=== PATIENT | female | born 1950 | race Caucasian/White ===

== ENCOUNTER 2016-10-31 08:51 | Emergency (ER) | payer MEDICARE, MEDICAID ==
[~2016-10-31] VITALS: Ht 157.5 cm; Wt 66.9 kg
[~2016-10-31 08:51] MED LIST: /HYDR10T PO; /WARF3TA PO; ASPI81TA85 PO; ATOR1TAB19 PO; CARV12.5 PO; FENO48TA2 PO; FLAG500T PO; HYDR50IN3 IM; HYDRPOW28 XX; LANS30CA PO; LISI5TAB PO; MONT10TA2 PO; MULTTAB6 PO; SPIR25TA2 PO; WARF4TAB28 PO
[2016-10-31] MEDS ORDERED: CLAR10CA3 PO (09:27)
[2016-10-31] MEDS ORDERED: MECL-86 PO (09:27)
[2016-10-31] MEDS ORDERED: NS 1,000 ML IV SCH (09:39)
[2016-10-31] MEDS ORDERED: NS 500 ML IV ONE ×2 (09:45→11:00)
[2016-10-31 10:06] LABS: BASO % 0.4 % (0.0-1.0); EOS # 0.2 K/mm3 (0.0-0.50); EOS % 2.7 % (0.0-3.0); LARGE UNSTAINED CELL # 0.1 K/mm3 (0.0-0.4); LARGE UNSTAINED CELL % 1.7 % (0.0-4.0); LYMPH # 1.6 K/mm3 (1.5-4.5); LYMPH % 21.5 % (24.0-44.0); MEAN CORPUSCULAR HEMOGLOBIN 28.5 pg (27.0-33.0); MEAN CORPUSCULAR HGB CONC 31.4 g/dl (32.0-36.5); MEAN CORPUSCULAR VOLUME 90.9 fl (80.0-96.0); MONO # 0.6 K/mm3 (0.0-0.8); MONO % 9.1 % (0.0-5.0); NEUTROPHILS # 4.5 K/mm3 (1.8-7.7); NEUTROPHILS % 64.6 % (36.0-66.0); PLATELET COUNT, AUTOMATED 155 k/mm3 (150-450); RED CELL DISTRIBUTION WIDTH 20.3 % (11.5-14.5); WHITE BLOOD COUNT 6.9 K/mm3 (4.0-10.0)
[2016-10-31 10:27] LABS: ALBUMIN 3.7 GM/DL (3.2-5.2); ALBUMIN/GLOBULIN RATIO 1.19 (1.00-1.93); BILIRUBIN,DIRECT 0.8 MG/DL (0.0-0.2); BILIRUBIN,TOTAL 2.2 MG/DL (0.2-1.0); CALCIUM LEVEL 8.6 MG/DL (8.8-10.2); CREATININE FOR GFR 1.65 MG/DL (0.55-1.02); GLOMERULAR FILTRATION RATE 33.2 (>45); POTASSIUM SERUM 4.9 MEQ/L (3.5-5.1); TOTAL PROTEIN 6.8 GM/DL (6.4-8.2)
[2016-10-31 12:20] VITALS: BP 106/55
--- NOTE | 2016-11-02 07:15 | ECGEPIP ---
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
== END 2016-10-31 12:42 | disposition home or self-care (01) ==
LOC: M ED 10:17
DX: R42 Dizziness and giddiness (principal); H92.09 Otalgia, unspecified ear; I50.9 Heart failure, unspecified; I11.0 Hypertensive heart disease with heart failure; Z95.1 Presence of aortocoronary bypass graft; Z95.0 Presence of cardiac pacemaker; Z79.82 Long term (current) use of aspirin; Z79.899 Other long term (current) drug therapy; Z79.01 Long term (current) use of anticoagulants; Z88.8 Allergy status to other drugs, medicaments and biological substances

== ENCOUNTER → 2016-12-20 | Outpatient (REF) | payer MEDICARE, MEDICAID ==
[~2016-12-20] MED LIST changes: +CLAR10CA3 PO; +FURO20TA2 PO; +MAGN64TASA PO; +MECL-86 PO
[2016-12-20 19:09] LABS: RETIC HEMOGLOBIN CONTENT CHr 27.4 PG (24-36); RETICULOCYTE ABSOLUTE ADVIA212 228 x10(9)/L (17-77)
[2016-12-20 19:24] LABS: REASON FOR REVIEW COMPREHENSIVE REVIEW
[2016-12-20 20:32] LABS: FERRITIN 27 NG/ML (8-252); PERCENT SATURATION 9.5 % (13.2-45.0); TOTAL IRON BINDING CAPACITY 524 UG/DL (250-450); TOTAL PROTEIN 6.8 GM/DL (6.4-8.2)
[2016-12-21 12:02] LABS: ALBUMIN 3.92 GM/DL (3.29-5.55); ALBUMIN % 57.7 % (55.8-66.1); GAMMA GLOBULIN % 13.1 % (11.1-18.8)
== END ==
LOC: M LAB REF 14:10
PROVIDERS: ATTEND Internal Medicine Medical Oncology
DX: R79.9 Abnormal finding of blood chemistry, unspecified (principal)

== ENCOUNTER → 2017-01-07 | Outpatient (REF) | payer MEDICARE, MEDICAID | LOC: M LAB REF 12:35 | PROVIDERS: ATTEND Internal Medicine Medical Oncology | DX: D50.9 Iron deficiency anemia, unspecified (principal) ==

== ENCOUNTER 2017-01-16 14:01 | Emergency (ER) | payer MEDICARE, MEDICAID ==
[~2017-01-16] VITALS: Ht 152.4 cm; Wt 139.0 kg
[~2017-01-16 14:01] MED LIST changes: -FURO20TA2 PO; -MAGN64TASA PO
[2017-01-16] MEDS ORDERED: MAGN64TASA PO (14:14)
[2017-01-16] MEDS ORDERED: FURO20TA2 PO (14:14)
[2017-01-16 14:56] LABS: INR 4.09
[2017-01-16 14:58] LABS: ADD MANUAL DIFFER YES; MEAN CORPUSCULAR HEMOGLOBIN 22.4 pg (27.0-33.0); PLATELET COUNT, AUTOMATED 219 k/mm3 (150-450); RED CELL DISTRIBUTION WIDTH 31.7 % (11.5-14.5); WHITE BLOOD COUNT 7.2 K/mm3 (4.0-10.0)
[2017-01-16 15:13] LABS: ALBUMIN 3.5 GM/DL (3.2-5.2); ALBUMIN/GLOBULIN RATIO 1.06 (1.00-1.93); BILIRUBIN,DIRECT 2.9 MG/DL (0.0-0.2); BILIRUBIN,TOTAL 4.6 MG/DL (0.2-1.0); CALCIUM LEVEL 8.8 MG/DL (8.8-10.2); CREATININE FOR GFR 1.41 MG/DL (0.55-1.02); FREE T4 1.48 NG/DL (0.76-1.46); GLOMERULAR FILTRATION RATE 39.8 (>45); POTASSIUM SERUM 4.3 MEQ/L (3.5-5.1); TOTAL PROTEIN 6.8 GM/DL (6.4-8.2)
--- NOTE | 2017-01-16 15:18 | REP ---
Clinical: Shortness of breath. Syncope. Technique: PA and lateral. Comparison: 11/10/2006. Findings: Cardiomegaly and evidence for prior sternotomy, CABG, valve replacement, and pacemaker. Lung ventura demonstrate chronic changes similar to prior examination. Subtle superimposed left lower lobe atelectasis and small pleural effusion cannot be excluded. No pneumothorax. Skeletal structures intact. Impression: Chronic stable changes. Cannot exclude superimposed left basilar atelectasis and small pleural effusion. Signed by Ken Driscoll MD 01/16/2017 03:09 P
[2017-01-16 15:40] LABS: EOSINOPHILS 4 % (0-5); NUCLEATED RED BLOOD CELL 1 % (0-0)
[2017-01-16 15:47] LABS: ANISOCYTOSIS 3+; HYPOCHROMASIA 2+; MICROCYTOSIS 1+; POLYCHROMASIA 1+; SCHISTOCYTES 3+
[2017-01-16 15:48] LABS: POIKILOCYTOSIS 2+
[2017-01-16 17:52] VITALS: BP 105/55
--- NOTE | 2017-01-17 07:59 | ECGEPIP ---
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
== END 2017-01-16 17:53 | disposition short-term general hospital (02) ==
LOC: M ED 14:01
DX: I35.0 Nonrheumatic aortic (valve) stenosis (principal); I50.9 Heart failure, unspecified; E80.6 Other disorders of bilirubin metabolism; R74.8 Abnormal levels of other serum enzymes; I11.9 Hypertensive heart disease without heart failure; E78.9 Disorder of lipoprotein metabolism, unspecified; N18.9 Chronic kidney disease, unspecified; F41.9 Anxiety disorder, unspecified; K21.9 Gastro-esophageal reflux disease without esophagitis; Z79.82 Long term (current) use of aspirin; Z79.01 Long term (current) use of anticoagulants; Z79.899 Other long term (current) drug therapy; Z88.8 Allergy status to other drugs, medicaments and biological substances

== ENCOUNTER → 2017-02-09 | Outpatient (REF) | payer MEDICARE, MEDICAID ==
[~2017-02-09] MED LIST changes: +FURO20TA2 PO; +MAGN64TASA PO
== END ==
LOC: M LAB REF 13:02
PROVIDERS: ATTEND Nurse Practitioner
DX: I48.91 Unspecified atrial fibrillation (principal); I06.0 Rheumatic aortic stenosis

== ENCOUNTER 2017-04-11 10:39 | Emergency (ER) | payer MEDICARE, MEDICAID ==
[~2017-04-11] VITALS: Ht 157.5 cm; Wt 54.5 kg
[2017-04-11] MEDS ORDERED: FOLI1TAB4 (10:53)
[2017-04-11] MEDS ORDERED: FURO40TA2 (10:53)
[2017-04-11] MEDS ORDERED: TAB-TAB (10:53)
[2017-04-11] MEDS ORDERED: POTA1TAB23 (10:53)
[2017-04-11] MEDS ORDERED: ATOR1TAB21 (10:53)
[2017-04-11] MEDS ORDERED: CARV3.12 (10:53)
[2017-04-11] MEDS ORDERED: NS 500 ML IV ONE (13:15)
[2017-04-11 13:49] LABS: BASO % 0.5 % (0.0-1.0); EOS # 0.1 10^3/uL (0.0-0.50); EOS % 1.6 % (0.0-3.0); IMMATURE GRANULOCYTE % 0.3 % (0-0); LYMPH # 1.8 10^3/uL (1.5-4.5); LYMPH % 23.1 % (24.0-44.0); MEAN CORPUSCULAR HEMOGLOBIN 26.9 pg (27.0-33.0); MEAN CORPUSCULAR HGB CONC 33.7 g/dl (32.0-36.5); MEAN CORPUSCULAR VOLUME 79.9 fl (80.0-96.0); MONO # 0.8 10^3/uL (0.0-0.8); MONO % 9.9 % (0.0-5.0); NEUTROPHILS # 5.1 10^3/uL (1.8-7.7); NEUTROPHILS % 64.6 % (36.0-66.0); PLATELET COUNT, AUTOMATED 247 10^3/uL (150-450); RED CELL DISTRIBUTION WIDTH 14.1 % (11.5-14.5)
[2017-04-11 14:05] LABS: ALBUMIN 4.1 GM/DL (3.2-5.2); ALBUMIN/GLOBULIN RATIO 1.08 (1.00-1.93); BILIRUBIN,DIRECT 0.5 MG/DL (0.0-0.2); BILIRUBIN,TOTAL 0.9 MG/DL (0.2-1.0); CALCIUM LEVEL 8.7 MG/DL (8.8-10.2); CREATININE FOR GFR 1.09 MG/DL (0.55-1.02); GLOMERULAR FILTRATION RATE 53.5 (>45); POTASSIUM SERUM 4.5 MEQ/L (3.5-5.1); TOTAL PROTEIN 7.9 GM/DL (6.4-8.2)
[2017-04-11] MEDS ORDERED: BENT10CA PO (15:37)
[2017-04-11 15:42] VITALS: BP 107/72
== END 2017-04-11 15:50 | disposition home or self-care (01) ==
LOC: M ED 10:39
DX: R19.7 Diarrhea, unspecified (principal); Z87.891 Personal history of nicotine dependence; Z79.82 Long term (current) use of aspirin; Z79.01 Long term (current) use of anticoagulants; Z79.899 Other long term (current) drug therapy; Z88.8 Allergy status to other drugs, medicaments and biological substances

== ENCOUNTER 2018-10-20 06:52 | Emergency (ER) | payer MEDICARE, MEDICAID ==
[~2018-10-20] VITALS: Ht 157.5 cm; Wt 63.2 kg
[~2018-10-20 06:52] MED LIST changes: -/WARF3TA PO; +ATOR1TAB21; +BENT10CA PO; +CARV3.12; +COUM1TAB19 PO; +FOLI1TAB11; +FURO40TA2; +POTA1TAB23; +TAB-TAB
[2018-10-20] MEDS ORDERED: ONDANSETRON 4MG/2ML VIAL (J2405) IV ONE (07:15)
[2018-10-20] MEDS ORDERED: NS 1,000 ML IV ONE (07:15)
[2018-10-20] MEDS ORDERED: NS 500 ML IV ONE (07:45)
[2018-10-20 07:47] LABS: BASO # 0.1 10^3/uL (0.0-0.2); BASO % 0.4 % (0.0-1.0); EOS # 0.2 10^3/uL (0.0-0.50); HEMATOCRIT 41.6 % (36.0-47.0); HEMOGLOBIN 14.4 g/dl (12.0-15.5); LYMPH # 2.7 10^3/uL (1.5-4.5); LYMPH % 11.8 % (24.0-44.0); MEAN CORPUSCULAR HEMOGLOBIN 30.6 pg (27.0-33.0); MEAN CORPUSCULAR HGB CONC 34.6 g/dl (32.0-36.5); MEAN CORPUSCULAR VOLUME 88.3 fl (80.0-96.0); MONO # 1.2 10^3/uL (0.0-0.8); MONO % 5.4 % (0.0-5.0); NEUTROPHILS # 18.2 10^3/uL (1.8-7.7); NEUTROPHILS % 80.8 % (36.0-66.0); PLATELET COUNT, AUTOMATED 209 10^3/uL (150-450); RED BLOOD COUNT 4.71 10^6/uL (4.00-5.40); WHITE BLOOD COUNT 22.5 10^3/uL (4.0-10.0)
[2018-10-20 07:48] LABS: INR 2.92; PROTHROMBIN TIME 30.4 SECONDS (11.8-14.0)
[2018-10-20] MEDS ORDERED: MORPHINE 2 MG/ML 1ML SYRINGE (J2270) IV ONE ×2 (08:00→11:30)
[2018-10-20] MEDS ORDERED: ISOVUE-370 76% 100ML VIAL (Q9967) As Ordered ONE (08:18)
[2018-10-20 09:10] LABS: ALBUMIN 4.3 GM/DL (3.2-5.2); BILIRUBIN,DIRECT 0.7 MG/DL (0.0-0.2); BILIRUBIN,TOTAL 1.4 MG/DL (0.2-1.0); TOTAL PROTEIN 7.6 GM/DL (6.4-8.2)
--- NOTE | 2018-10-20 10:22 | REP ---
CT ABDOMEN AND PELVIS WITH IV CONTRAST: TECHNIQUE: Axial contrast enhanced images from the lung bases to the pubic symphysis using 100 mL Isovue 370 intravenous contrast material with multiplanar reformations. Visualized lung bases demonstrate fibro atelectatic changes within the lateral segment of the right middle lobe on the most superior image there is a 9 mm nodular opacity. There is significant cardiomegaly with severe right atrial and left atrial enlargement. The liver demonstrates diffuse fatty infiltration. The gallbladder is moderately distended and contains multiple subcentimeter stones. The spleen and adrenals were unremarkable. The pancreas demonstrates diffuse inflammatory change in the peripancreatic fat compatible with pancreatitis. There are several increased density in the region of the distal end of the common bile ducts probably representing choledocholithiasis. Common bile duct is not significantly dilated centrally 7 mm in maximum diameter. Each kidney demonstrates a couple of tiny subcentimeter cysts without hydronephrosis. There is no abdominal aortic aneurysm. There is no adenopathy. There is no free air or free fluid. No bowel wall thickening is seen. I see no pelvic mass. The urinary bladder is not well distended and not well evaluated. There is a small right inguinal hernia containing fat. IMPRESSION: Partially imaged in the right middle lobe is a 9 mm nodular density. Follow up chest recommended. There is significant cardiomegaly with significant right atrial and left atrial enlargement. There are findings of pancreatitis. There are multiple subcentimeter gallstones in the gallbladder. There is increased density in the region of the distal end of the common bile duct suspicious for choledocholithiasis. No free air or free fluid. Electronically Signed by Jacob Beatty MD 10/20/2018 10:37 A
[2018-10-20] MEDS ORDERED: PIPERACILLIN/TAZOBACTAM SOD 3.375 GM in D5W MINI-BAG PLUS 50 ML IV ONE (11:30)
[2018-10-20 14:15] VITALS: BP 88/44
== END 2018-10-20 14:19 | disposition short-term general hospital (02) ==
LOC: M ED 06:52
DX: K80.70 Calculus of gallbladder and bile duct without cholecystitis without obstruction (principal); K85.90 Acute pancreatitis without necrosis or infection, unspecified; K83.09 Other cholangitis; R91.1 Solitary pulmonary nodule; R11.10 Vomiting, unspecified; R19.7 Diarrhea, unspecified; I50.9 Heart failure, unspecified; I11.0 Hypertensive heart disease with heart failure; I48.91 Unspecified atrial fibrillation; E78.5 Hyperlipidemia, unspecified; K21.9 Gastro-esophageal reflux disease without esophagitis; Z87.440 Personal history of urinary (tract) infections; Z95.1 Presence of aortocoronary bypass graft; Z95.2 Presence of prosthetic heart valve; Z95.810 Presence of automatic (implantable) cardiac defibrillator; Z88.8 Allergy status to other drugs, medicaments and biological substances; Z79.899 Other long term (current) drug therapy; Z79.82 Long term (current) use of aspirin; Z79.01 Long term (current) use of anticoagulants
CPT/HCPCS: 74177; 80047; 80076; 83605; 83690; 85025; 85610; 96361; 96374; 96375; 99284; J2270; J2405; J2543; Q9967

== ENCOUNTER → 2018-11-20 | Outpatient (REF) | payer MEDICARE, MEDICAID ==
[2018-11-20 16:22] LABS: PROTHROMBIN TIME 58.6 SECONDS (11.8-14.0)
[2018-11-20 16:48] LABS: INR 6.63
== END ==
LOC: M LAB REF 15:26
PROVIDERS: ATTEND Physician Assistant
DX: I48.2 Chronic atrial fibrillation (principal)

== ENCOUNTER 2019-01-02 08:11 | Inpatient (IN) | payer MEDICARE, MEDICAID ==
[~2019-01-02] VITALS: Ht 157.5 cm; Wt 56.6 kg
[~2019-01-02 08:11] MED LIST changes: +ASPI-117 PO; -ATOR1TAB21; +ATOR1TAB21 PO; -CARV3.12; +CARV3.12 PO; -FOLI1TAB11; +FOLI1TAB11 PO; -FURO40TA2; +FURO40TA2 PO; +LANS30CA93 PO; +LISI-542 PO; +POTA10TA14 PO; +SPIR-10 PO; +TAB-TAB3 PO; +WARF-20 PO
[2019-01-02] MEDS ORDERED: ACET-683 PO (09:25)
[2019-01-02 09:54] LABS: BASO # 0.1 10^3/uL (0.0-0.2); BASO % 0.9 % (0.0-1.0); EOS # 0.2 10^3/uL (0.0-0.5); HEMATOCRIT 35.8 % (36.0-47.0); HEMOGLOBIN 11.7 g/dl (12.0-15.5); LYMPH # 1.5 10^3/uL (1.5-5.0); LYMPH % 26.5 % (24.0-44.0); MEAN CORPUSCULAR HEMOGLOBIN 28.1 pg (27.0-33.0); MEAN CORPUSCULAR HGB CONC 32.7 g/dl (32.0-36.5); MEAN CORPUSCULAR VOLUME 85.9 fl (80.0-96.0); MONO # 0.4 10^3/uL (0.0-0.8); MONO % 7.7 % (0.0-5.0); NEUTROPHILS # 3.5 10^3/uL (1.5-8.5); NEUTROPHILS % 61.7 % (36.0-66.0); PLATELET COUNT, AUTOMATED 176 10^3/uL (150-450); RED BLOOD COUNT 4.17 10^6/uL (4.00-5.40); WHITE BLOOD COUNT 5.7 10^3/uL (4.0-10.0)
[2019-01-02 10:03] LABS: INR 1.54; PROTHROMBIN TIME 18.2 SECONDS (11.8-14.0)
[2019-01-02 10:04] LABS: PARTIAL THROMBOPLASTIN TIME 28.1 SECONDS (25.0-38.4)
[2019-01-02 10:16] LABS: ALBUMIN 3.7 GM/DL (3.2-5.2); BILIRUBIN,DIRECT 0.3 MG/DL (0.0-0.2); CREATININE FOR GFR 0.99 MG/DL (0.55-1.30); GLOMERULAR FILTRATION RATE 59.6 (>45); POTASSIUM SERUM 4.8 MEQ/L (3.5-5.1); TOTAL PROTEIN 6.6 GM/DL (6.4-8.2)
[2019-01-02 12:00] VITALS: BP 110/70
--- NOTE | 2019-01-02 12:07 | HPEPDOC ---
[facility] Medical History & Physical Date of Admission Jan 02, 2019 Date of Service: Jan 02, 2019 History and Physical CHIEF COMPLAINT: cholecystectomy HISTORY OF PRESENT ILLNESS: Patient sent to ED by PCP for malik-op monitoring for planned cholecystectomy. No complaints at this time. Denies chest pain, shortness of breath, headaches, N/V/D. PAST MEDICAL HISTORY: 1. aortic valve replacement - mechanical 2. mitral valve replacement - mechanical 3. coronary artery disease - s/p CABG 4. a-fib 5. HTN 6. HLD 7. former smoker - 60 pack year history, quit in the ALLERGIES: Please see below. REVIEW OF SYSTEMS: Negative except as per HPI HOME MEDICATIONS: Please see below. PHYSICAL EXAMINATION: GENERAL APPEARANCE: elderly, NAD, lying comfortably in bed HEENT: NC/AT, edentulous CARDIOVASCULAR: systolic click, RRR LUNGS: CTA B/L ABDOMEN: soft, NT, +BS EXTREMITIES: no edema NEUROLOGICAL: no gross focal deficits PSYCHIATRIC: AAOx3 LABORATORY DATA: See below. MICROBIOLOGY: Please see below. ASSESSMENT: 68 yo female with extensive cardiac history admitted for malik-op monitoring for planned cholecystectomy #choly - surgical consultation pending - d/w cardiology, discontinue aspirin, defibrillator to be de-activated prior to surgery; cardiac risk stratification already completed by dr. gomes #AVR/MVR/afib - rate controlled - warfarin on hold - bridging with heparin gtt - cardiology consultation pending #CAD/CABG - continue stating, d/w cardiology regarding aspiring #HTN - continue home meds #GERD - protonix #DVT prophylaxis - as above - heparin gtt Vital Signs Vital Signs Date Time Temp Pulse Resp B/P (MAP) Pulse Ox O2 Delivery O2 Flow Rate FiO2 01/02/19 11:40 97.2 69 17 136/60 (85) 99 Room Air Laboratory Data Labs 24H Laboratory Tests 2 01/02/19 09:25: Immature Granulocyte % (Auto) 0.2, White Blood Count 5.7, Red Blood Count 4.17, Hemoglobin 11.7L, Hematocrit 35.8L, Mean Corpuscular Volume 85.9, Mean Corpuscular Hemoglobin 28.1, Mean Corpuscular Hemoglobin Concent 32.7, Red Cell Distribution Width 13.5, Platelet Count 176, Neutrophils (%) (Auto) 61.7, Lymphocytes (%) (Auto) 26.5, Monocytes (%) (Auto) 7.7H, Eosinophils (%) (Auto) 3.0, Basophils (%) (Auto) 0.9, Neutrophils # (Auto) 3.5, Lymphocytes # (Auto) 1.5, Monocytes # (Auto) 0.4, Eosinophils # (Auto) 0.2, Basophils # (Auto) 0.1, Nucleated Red Blood Cells % (auto) 0.0, Prothrombin Time 18.2H, Prothromb Time International Ratio 1.54, Activated Partial Thromboplast Time 28.1, Anion Gap 5L, Glomerular Filtration Rate 59.6, Calcium Level 9.0, Aspartate Amino Transf (AST/SGOT) 33, Alanine Aminotransferase (ALT/SGPT) 33, Alkaline Phosphatase 93, Total Bilirubin 1.0, Direct Bilirubin 0.3H, Total Protein 6.6, Albumin 3.7, Albumin/Globulin Ratio 1.28 CBC/BMP Laboratory Tests 01/02/19 09:25 Red Blood Count 4.17, Mean Corpuscular Volume 85.9, Mean Corpuscular Hemoglobin 28.1, Mean Corpuscular Hemoglobin Concent 32.7, Red Cell Distribution Width 13.5, Neutrophils (%) (Auto) 61.7, Lymphocytes (%) (Auto) 26.5, Monocytes (%) (Auto) 7.7 H, Eosinophils (%) (Auto) 3.0, Basophils (%) (Auto) 0.9, Neutrophils # (Auto) 3.5, Lymphocytes # (Auto) 1.5, Monocytes # (Auto) 0.4, Eosinophils # (Auto) 0.2, Basophils # (Auto) 0.1 Home Medications Scheduled Aspirin (Aspirin EC) 81 Mg Tablet.dr, 81 MG PO DAILY Atorvastatin Calcium (Atorvastatin Calcium) 20 Mg Tab, 20 MG PO QPM Carvedilol (Carvedilol) 3.125 Mg Tab, 3.125 MG PO BID Folic Acid (Folic Acid) 1 Mg Tab, 1 MG PO DAILY Furosemide (Furosemide) 40 Mg Tab, 40 MG PO DAILY Lansoprazole (Lansoprazole) 30 Mg Capsule.dr, 30 MG PO DAILY Lisinopril (Lisinopril) 5 Mg Tablet, 5 MG PO QPM Montelukast Sodium (Montelukast Sodium) 10 Mg Tablet, 10 MG PO QPM Multivitamin (Tab-A-Ovidio) 1 Each Tablet, 1 TAB PO DAILY Potassium Chloride (Potassium Chloride) 10 Meq Tablet.er, 10 MEQ PO DAILY Spironolactone (Spironolactone) 25 Mg Tablet, 25 MG PO DAILY Warfarin Sodium (Warfarin Sodium) 4 Mg Tablet, 2 MG PO 5XW MON/TUE/THURS/FRI/SUN AT 1700 Warfarin Sodium (Warfarin Sodium) 4 Mg Tablet, 4 MG PO 2XW WED/SAT AT 1700 Scheduled PRN Acetaminophen (Acetaminophen) 500 Mg Tablet, 1,000 MG PO Q6H PRN for PAIN Allergies Coded Allergies: simvastatin (Verified Allergy, Mild, RASH, 01/02/19) A-FIB/CHADSVASC A-FIB History Current/History of A-Fib/PAF?: Yes Current PO Anticoag Therapy: Yes Age/Risk Factor Scoring CHADSVASC: CHADSVASC Response (Comments) Value Age Risk Factor Age 65-74 years old 1 Gender Risk Factor Female 1 Hx of CHF No 0 Hx of HTN Yes 1 Hx of Stroke/TIA/or VTE No 0 Hx of Diabetes No 0 Hx of Vascular Disease No 0 Total 3 Treatment Treatment ordered: Heparin IV bridge Therapy SHAYLEE GARDUNO MD Jan 02, 2019 12:07
[2019-01-02] MEDS ORDERED: HEPARIN SOD (PORCINE) 5000 UNITS/ML VIAL IV PRN (12:15)
[2019-01-02] MEDS: HEPARIN DRIP 25,000 UNITS in APPROPRIATE DILUENT 1 EA IV SCH (14:45)
[2019-01-02 16:00] VITALS: BP 130/62
[2019-01-02 20:00] VITALS: BP 103/56
[2019-01-02] MEDS: LISINOPRIL 5 MG TAB PO SCH (21:23)
[2019-01-02] MEDS: MONTELUKAST 10 MG TAB PO SCH (21:23)
[2019-01-02] MEDS: ATORVASTATIN 20 MG TAB PO SCH (21:23)
[2019-01-02] MEDS: CARVedilol 3.125 MG TAB PO SCH (21:24)
[2019-01-02 21:46] LABS: INR 1.46; PROTHROMBIN TIME 17.5 SECONDS (11.8-14.0)
[2019-01-02 21:48] LABS: PARTIAL THROMBOPLASTIN TIME 106.3 SECONDS (25.0-38.4)
[2019-01-02 23:59] VITALS: BP 100/51
[2019-01-03 04:00] VITALS: BP 116/65
[2019-01-03 05:07] LABS: HEMATOCRIT 33.3 % (36.0-47.0); HEMOGLOBIN 10.7 g/dl (12.0-15.5); MEAN CORPUSCULAR HEMOGLOBIN 26.9 pg (27.0-33.0); MEAN CORPUSCULAR HGB CONC 32.1 g/dl (32.0-36.5); MEAN CORPUSCULAR VOLUME 83.7 fl (80.0-96.0); PLATELET COUNT, AUTOMATED 165 10^3/uL (150-450); RED BLOOD COUNT 3.98 10^6/uL (4.00-5.40); WHITE BLOOD COUNT 5.9 10^3/uL (4.0-10.0)
[2019-01-03 05:25] LABS: BLOOD UREA NITROGEN 17 MG/DL (7-18); CALCIUM LEVEL 8.3 MG/DL (8.8-10.2); CARBON DIOXIDE LEVEL 26 MEQ/L (21-32); CHLORIDE LEVEL 109 MEQ/L (98-107); CREATININE FOR GFR 0.91 MG/DL (0.55-1.30); GLOMERULAR FILTRATION RATE > 60.0 (>45); GLUCOSE, FASTING 109 MG/DL (70-100); POTASSIUM SERUM 4.3 MEQ/L (3.5-5.1); SODIUM LEVEL 140 MEQ/L (136-145)
[2019-01-03 07:48] VITALS: BP 115/62
[2019-01-03] MEDS ORDERED: SLF 3 ML SYR IV PRN (09:00)
[2019-01-03] MEDS: FOLIC ACID 1 MG TAB PO SCH (09:16)
[2019-01-03] MEDS: CARVedilol 3.125 MG TAB PO SCH ×2 (09:16→21:57)
[2019-01-03] MEDS: FUROSEMIDE 40 MG TAB PO SCH (09:16)
[2019-01-03] MEDS: SPIRONOLACTONE 25 MG TAB PO SCH (09:17)
[2019-01-03] MEDS: POTASSIUM CHLORIDE 10 MEQ SR TABLET PO SCH (09:17)
--- NOTE | 2019-01-03 09:40 | IPNPDOC ---
Text Note Date of Service The patient was seen on 01/03/19. NOTE Patient seen today. She is scheduled for elective laparoscopic cholecystectomy with IOC on tuesday morning. She needs bridge anticoagulation therapy for a mechanical mitral valve. She is denying any ongoing abdominal discomfort. Plan hold heparin at 7pm on 01/04/19 VS,Fishbone, I+O VS, Fishbone, I+O Laboratory Tests 01/03/19 04:43 Red Blood Count 3.98 L, Mean Corpuscular Volume 83.7, Mean Corpuscular Hemoglobin 26.9 L, Mean Corpuscular Hemoglobin Concent 32.1, Red Cell Distribution Width 13.8, Calcium Level 8.3 L Vital Signs Date Time Temp Pulse Resp B/P (MAP) Pulse Ox O2 Delivery O2 Flow Rate FiO2 01/03/19 09:16 69 115/62 01/03/19 07:48 97.3 18 96 01/02/19 11:40 Room Air I&O- Last 24 Hours up to 6 AM 01/03/19 06:00 Intake Total 747 ml Output Total 150 ml Balance 597 ml CASEY OCHOA MD Jan 03, 2019 09:40
--- NOTE | 2019-01-03 10:32 | IPNPDOC ---
Text Note Date of Service The patient was seen on 01/03/19. NOTE Subjective: Patient seen and examined at bedside. No acute overnight events reported. Patient has no new medical complaints this mornign. Objective: GENERAL APPEARANCE: elderly, NAD, lying comfortably in bed HEENT: NC/AT, edentulous CARDIOVASCULAR: systolic click, RRR, systolic murmur LUNGS: CTA B/L ABDOMEN: soft, NT, +BS EXTREMITIES: no edema NEUROLOGICAL: no gross focal deficits PSYCHIATRIC: AAOx3 ASSESSMENT: 68 yo female with extensive cardiac history admitted for malik-op monitoring for planned cholecystectomy #choly - surgical consultation appreciated - plan for OR Tuesday morning - d/w cardiology, discontinue aspirin, defibrillator to be de-activated prior to surgery; cardiac risk stratification already completed by dr. gomes #AVR/MVR/afib - rate controlled - warfarin on hold - bridging with heparin gtt - follow as per cardiology #CAD/CABG - continue stating, d/w cardiology regarding aspirin - on hold #HTN - continue home meds #GERD - protonix #DVT prophylaxis - as above - heparin gtt VS,Fishbone, I+O VS, Fishbone, I+O Laboratory Tests 01/03/19 04:43 Red Blood Count 3.98 L, Mean Corpuscular Volume 83.7, Mean Corpuscular Hemoglobin 26.9 L, Mean Corpuscular Hemoglobin Concent 32.1, Red Cell Distribution Width 13.8, Calcium Level 8.3 L Vital Signs Date Time Temp Pulse Resp B/P (MAP) Pulse Ox O2 Delivery O2 Flow Rate FiO2 01/03/19 09:16 69 115/62 01/03/19 07:48 97.3 18 96 01/02/19 11:40 Room Air I&O- Last 24 Hours up to 6 AM 01/03/19 06:00 Intake Total 747 ml Output Total 150 ml Balance 597 ml SHAYLEE GARDUNO MD Jan 03, 2019 10:32
[2019-01-03 14:07] VITALS: BP 122/62
[2019-01-03] MEDS: SLF 3 ML SYR IV SCH ×3 (14:13→22:00)
[2019-01-03] MEDS: ACETAMINOPHEN 500 MG TAB PO PRN (18:19)
[2019-01-03 20:00] VITALS: BP 128/66
[2019-01-03] MEDS: LISINOPRIL 5 MG TAB PO SCH (21:57)
[2019-01-03] MEDS: MONTELUKAST 10 MG TAB PO SCH (21:57)
[2019-01-03] MEDS: ATORVASTATIN 20 MG TAB PO SCH (21:57)
[2019-01-04] MEDS: HEPARIN DRIP 25,000 UNITS in APPROPRIATE DILUENT 1 EA IV SCH (01:04)
[2019-01-04 06:00] VITALS: BP 131/71
[2019-01-04] MEDS: SLF 3 ML SYR IV SCH ×3 (06:00→21:38)
[2019-01-04 06:21] LABS: HEMOGLOBIN 11.4 g/dl (12.0-15.5); MEAN CORPUSCULAR HEMOGLOBIN 27.3 pg (27.0-33.0); MEAN CORPUSCULAR HGB CONC 32.6 g/dl (32.0-36.5); MEAN CORPUSCULAR VOLUME 83.7 fl (80.0-96.0); PLATELET COUNT, AUTOMATED 177 10^3/uL (150-450); RED BLOOD COUNT 4.18 10^6/uL (4.00-5.40); WHITE BLOOD COUNT 5.4 10^3/uL (4.0-10.0)
[2019-01-04 06:39] LABS: CALCIUM LEVEL 9.2 MG/DL (8.8-10.2); CREATININE FOR GFR 1.13 MG/DL (0.55-1.30); GLOMERULAR FILTRATION RATE 51.1 (>45); POTASSIUM SERUM 4.1 MEQ/L (3.5-5.1)
[2019-01-04] MEDS: FOLIC ACID 1 MG TAB PO SCH (08:46)
[2019-01-04] MEDS: POTASSIUM CHLORIDE 10 MEQ SR TABLET PO SCH (08:46)
[2019-01-04] MEDS: SPIRONOLACTONE 25 MG TAB PO SCH (08:46)
[2019-01-04] MEDS: FUROSEMIDE 40 MG TAB PO SCH (08:46)
[2019-01-04] MEDS: CARVedilol 3.125 MG TAB PO SCH ×2 (08:47→21:37)
--- NOTE | 2019-01-04 10:55 | IPNPDOC ---
Text Note Date of Service The patient was seen on 01/04/19. NOTE Subjective: Patient seen and examined at bedside. No acute overnight events reported. Patient has no new medical complaints this morning. Objective: GENERAL APPEARANCE: elderly, NAD, lying comfortably in bed HEENT: NC/AT, edentulous CARDIOVASCULAR: systolic click, RRR, systolic murmur LUNGS: CTA B/L ABDOMEN: soft, NT, +BS EXTREMITIES: no edema NEUROLOGICAL: no gross focal deficits PSYCHIATRIC: AAOx3 ASSESSMENT: 68 yo female with extensive cardiac history admitted for malik-op monitoring for planned cholecystectomy #cholelithiasis - surgical consultation appreciated - plan for OR Tuesday morning - d/w cardiology, discontinue aspirin, defibrillator to be de-activated prior to surgery; cardiac risk stratification already completed by dr. gomes #AVR/MVR/afib - rate controlled - warfarin on hold - bridging with heparin gtt - follow as per cardiology #CAD/CABG - continue stating, d/w cardiology regarding aspirin - on hold #HTN - continue home meds #GERD - protonix #DVT prophylaxis - as above - heparin gtt Dispo: NPO after midnight, hold heparin as per surgery recs, plan for OR tomorrow morning VS,Fishbone, I+O VS, Fishbone, I+O Laboratory Tests 01/04/19 06:05 Red Blood Count 4.18, Mean Corpuscular Volume 83.7, Mean Corpuscular Hemoglobin 27.3, Mean Corpuscular Hemoglobin Concent 32.6, Red Cell Distribution Width 13.7, Calcium Level 9.2 Vital Signs Date Time Temp Pulse Resp B/P (MAP) Pulse Ox O2 Delivery O2 Flow Rate FiO2 01/04/19 08:47 74 134/72 01/04/19 06:00 97.3 18 94 01/02/19 11:40 Room Air I&O- Last 24 Hours up to 6 AM 01/04/19 06:00 Intake Total 1452 ml Output Total 650 ml Balance 802 ml SHAYLEE GARDUNO MD Jan 04, 2019 10:54
[2019-01-04 14:00] VITALS: BP 142/60
--- NOTE | 2019-01-04 16:11 | ECGEPIP ---
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
[2019-01-04 18:00] VITALS: BP 130/65
[2019-01-04] MEDS: LISINOPRIL 5 MG TAB PO SCH (21:37)
[2019-01-04] MEDS: ATORVASTATIN 20 MG TAB PO SCH (21:38)
[2019-01-04] MEDS: MONTELUKAST 10 MG TAB PO SCH (21:38)
[2019-01-05 06:00] VITALS: BP 120/65
[2019-01-05] MEDS: SLF 3 ML SYR IV SCH ×3 (06:31→23:23)
[2019-01-05 06:38] LABS: HEMATOCRIT 35.8 % (36.0-47.0); HEMOGLOBIN 11.8 g/dl (12.0-15.5); MEAN CORPUSCULAR HEMOGLOBIN 27.6 pg (27.0-33.0); MEAN CORPUSCULAR VOLUME 83.6 fl (80.0-96.0); PLATELET COUNT, AUTOMATED 188 10^3/uL (150-450); RED BLOOD COUNT 4.28 10^6/uL (4.00-5.40); WHITE BLOOD COUNT 7.1 10^3/uL (4.0-10.0)
[2019-01-05 06:54] LABS: CALCIUM LEVEL 9.1 MG/DL (8.8-10.2); CREATININE FOR GFR 1.16 MG/DL (0.55-1.30); GLOMERULAR FILTRATION RATE 49.6 (>45); POTASSIUM SERUM 3.9 MEQ/L (3.5-5.1)
[2019-01-05] MEDS ORDERED: AMPICILLIN SOD/SULBACTAM SOD 3 GM in D5W MINI-BAG PLUS 100 ML IV ONE (07:00)
--- NOTE | 2019-01-05 10:18 | ROOPDOC ---
[facility] Report Of Operation Report of Operation DATE OF PROCEDURE: 01/05/19 PREOPERATIVE DIAGNOSIS: Cholelithiasis, history of gallstone pancreatitis, mechanical heart valve on anticoagulation POSTOPERATIVE DIAGNOSIS: Same FINDINGS: Relatively thin-walled gallbladder with moderate amounts of adiposity covering the gallbladder. Difficulty tenting the gallbladder as it was ripping apart with the retraction. I originally was planning to perform a cholangiogram due to the difficulty in maintaining traction on the gallbladder proceeded without the cholangiogram. The gallbladder was dissected dome down to be on the area of the cholecystotomies and secured with PDS Endoloops 2. PROCEDURE: Laparoscopic cholecystectomy SURGEON: Antonio Gonzalez MD ANESTHESIA: Gen. anesthesia SPECIMENS: Gallbladder ESTIMATED BLOOD LOSS: 50 ML DRAINS: 10 flat Sam-Jeffers drain COMPLICATIONS: None POSTOPERATIVE CONDITION: Extubated, stable DESCRIPTION OF PROCEDURE: Patient was given a dose Unasyn 3 g IV preoperatively for prophylaxis. She was brought to the operating room, laid supine on the table, compression boots placed for DVT prophylaxis. General endotracheal anesthesia started. Her abdomen then prepped and draped in usual sterile fashion. Surgical timeout was performed prior to starting surgery. Entry into the abdomen done through an incision above the umbilicus. A Veress needle was inserted with a controlled fashion. CO2 insufflation started to pressure 15 mmHg. Using the same incision a 5 mm Visiport was placed under direct vision laparoscope. The area underneath the insertion site was inspected and no injury found. She was then placed in steep reverse Trendelenburg. Her right side was tilted up to further expose the gallbladder. Under direct vision a 11 mm epigastric port and 25 mm working ports placed along the right subcostal line. Operative findings: Her liver is noted to be smooth in contour no nodularities or lesions found. She has a fairly contracted gallbladder and slightly subhepatic and course. The wall itself does not seem to be overly thickened she's got a good amount of adiposity covering the lower portion of the body of the gallbladder and then that the infundibulum itself does not seem to be prominent in the gallbladder just tapers down towards the cystic duct. The fundus of the gallbladder was grasped and the gallbladder was elevated superiorly exposing the neck of the gallbladder. On tenting the gallbladder there was a rip at the wall of the gallbladder with spillage of bile. The peritoneum overlying the area was opened up and dissected free both anteriorly and posteriorly to help with retraction of the gallbladder. The hepatocystic triangle was approached and dissected using a [place] and instrument. The cystic duct was identified coming off from the next gallbladder this was circumferentially dissected. The cystic artery was identified in its usual position medially behind a small lymph node of [place]. This was similarly circumferentially dissected off surrounding adipose tissue. We continued posterior dissection proximally at the neck of the gallbladder until a critical view of safety was achieved whereby only the previously identified duct and artery coursing through the neck the gallbladder. I originally wanted to do a cholangiogram given prior history of gallstone pancreatitis. She did have prior MRCP did not show any: Bile duct stones at that time. This is having a difficult time tenting the gallbladder due to the friability of the wall, it subhepatic location and the initial report the fundus of the gallbladder with retraction I decided to forego the cholangiogram as it did not seem safe at this time. At this point the cystic artery was clipped 4 times and divided. After again checking her anatomy and verifying that the previously identified cystic duct, this was also clipped 4 times and divided. The rest of the gallbladder was then dissected free of the gallbladder bed using Bovie cautery. There was minimal bleeding at the lateral gallbladder attachments to the liver capsule this was easily controlled with Bovie cautery. The gallbladder was then placed in an Endo Catch bag and retrieved outside through the epigastric port site. After re insufflation and inspected the clips and noted this to be in place. No further bleeding noted. No bile leakage noted. I left a TONY drain for postoperative monitoring as patient needs to be back on her anticoagulation. The abdomen was deflated all ports were removed. The epigastric fascial defect repaired with 0 Vicryl in a mattress fashion. Rest of the skin incisions closed with 4-0 Monocryl in subcuticular fashion. Steri-Strips and gauze dressings were placed, the wound. Patient was informed they awakened, extubated and brought to recovery room stable ANTONIO GONZALEZ MD Jan 05, 2019 10:18
[2019-01-05] MEDS ORDERED: LR 1,000 ML IV SCH (10:30)
[2019-01-05] MEDS ORDERED: oxyCODONE 5MG TAB PO PRN (10:30)
[2019-01-05] MEDS ORDERED: fentaNYL 100 MCG/2 ML INJECTION (J3010) IV PRN (10:30)
[2019-01-05] MEDS ORDERED: ONDANSETRON 4MG/2ML VIAL (J2405) IV PRN (10:30)
[2019-01-05] MEDS ORDERED: LACTATED RINGER'S 1000 ML IV ONE (10:45)
[2019-01-05 11:16] VITALS: BP 108/53
[2019-01-05 11:46] VITALS: BP 116/58
[2019-01-05] MEDS: POTASSIUM CHLORIDE 10 MEQ SR TABLET PO SCH (11:46)
[2019-01-05] MEDS: SPIRONOLACTONE 25 MG TAB PO SCH (11:46)
[2019-01-05] MEDS: FUROSEMIDE 40 MG TAB PO SCH (11:46)
[2019-01-05] MEDS: FOLIC ACID 1 MG TAB PO SCH (11:47)
[2019-01-05] MEDS: CARVedilol 3.125 MG TAB PO SCH ×2 (11:47→23:22)
[2019-01-05] MEDS ORDERED: LIDOCAINE 1% SDV INJ 30 ML VIAL As Ordered ONE (13:58)
[2019-01-05] MEDS ORDERED: CONRAY-60 60% 50ML VIAL (Q9961) As Ordered ONE (13:58)
[2019-01-05] MEDS ORDERED: BUPIVACAINE HCL 0.25% 30 ML VIAL As Ordered ONE (13:58)
[2019-01-05 22:00] VITALS: BP 113/59
[2019-01-05] MEDS: MONTELUKAST 10 MG TAB PO SCH (23:21)
[2019-01-05] MEDS: LISINOPRIL 5 MG TAB PO SCH (23:22)
[2019-01-05] MEDS: ATORVASTATIN 20 MG TAB PO SCH (23:22)
[2019-01-06 02:00] VITALS: BP 106/60
[2019-01-06] MEDS: SLF 3 ML SYR IV SCH ×3 (05:05→21:23)
[2019-01-06 06:00] VITALS: BP 91/54
[2019-01-06 06:39] LABS: HEMATOCRIT 33.5 % (36.0-47.0); HEMOGLOBIN 11.3 g/dl (12.0-15.5); MEAN CORPUSCULAR HEMOGLOBIN 28.7 pg (27.0-33.0); MEAN CORPUSCULAR HGB CONC 33.7 g/dl (32.0-36.5); PLATELET COUNT, AUTOMATED 157 10^3/uL (150-450); RED BLOOD COUNT 3.94 10^6/uL (4.00-5.40); WHITE BLOOD COUNT 12.5 10^3/uL (4.0-10.0)
[2019-01-06 06:50] LABS: INR 1.15; PROTHROMBIN TIME 14.4 SECONDS (11.8-14.0)
[2019-01-06 07:00] LABS: CREATININE FOR GFR 1.11 MG/DL (0.55-1.30); GLOMERULAR FILTRATION RATE 52.2 (>45); POTASSIUM SERUM 4.3 MEQ/L (3.5-5.1)
[2019-01-06] MEDS: CARVedilol 3.125 MG TAB PO SCH ×2 (09:00→21:23)
[2019-01-06] MEDS: SPIRONOLACTONE 25 MG TAB PO SCH (09:30)
[2019-01-06] MEDS: POTASSIUM CHLORIDE 10 MEQ SR TABLET PO SCH (09:30)
[2019-01-06] MEDS: FOLIC ACID 1 MG TAB PO SCH (09:30)
[2019-01-06] MEDS: FUROSEMIDE 40 MG TAB PO SCH (09:30)
[2019-01-06] MEDS: HEPARIN DRIP 25,000 UNITS in APPROPRIATE DILUENT 1 EA IV SCH (09:34)
[2019-01-06 10:00] VITALS: BP 100/52
--- NOTE | 2019-01-06 10:34 | IPNPDOC ---
Text Note Date of Service The patient was seen on 01/05/19. NOTE Subjective: Patient seen and examined at bedside. No acute overnight events reported. Patient has no new medical complaints this morning. Objective: GENERAL APPEARANCE: elderly, NAD, lying comfortably in bed HEENT: NC/AT, edentulous CARDIOVASCULAR: systolic click, RRR, systolic murmur LUNGS: CTA B/L ABDOMEN: soft, NT, +BS EXTREMITIES: no edema NEUROLOGICAL: no gross focal deficits PSYCHIATRIC: AAOx3 ASSESSMENT: 68 yo female with extensive cardiac history admitted for malik-op monitoring for planned cholecystectomy #cholelithiasis - surgical consultation appreciated - plan for OR today - d/w cardiology, discontinue aspirin, defibrillator to be de-activated prior to surgery; cardiac risk stratification already completed by dr. gomes #AVR/MVR/afib - rate controlled - heparin off for OR today - follow as per cardiology #CAD/CABG - continue stating, d/w cardiology regarding aspirin - on hold #HTN - continue home meds #GERD - protonix #DVT prophylaxis - as above - heparin on hold Dispo: plan for lap choly today VS,Fishbone, I+O VS, Fishbone, I+O Laboratory Tests 01/06/19 06:11 Red Blood Count 3.94 L, Mean Corpuscular Volume 85.0, Mean Corpuscular Hemoglobin 28.7, Mean Corpuscular Hemoglobin Concent 33.7, Red Cell Distribution Width 13.6, Calcium Level 9.0 Vital Signs Date Time Temp Pulse Resp B/P (MAP) Pulse Ox O2 Delivery O2 Flow Rate FiO2 01/06/19 06:00 98.5 70 18 91/54 (66) 92 01/05/19 11:07 2 01/02/19 11:40 Room Air I&O- Last 24 Hours up to 6 AM 01/06/19 05:59 Intake Total 2950 ml Output Total 70 ml Balance 2880 ml SHAYLEE GARDUNO MD Jan 06, 2019 10:34
--- NOTE | 2019-01-06 10:36 | IPNPDOC ---
Text Note Date of Service The patient was seen on 01/06/19. NOTE Subjective: Patient seen and examined at bedside. No acute overnight events reported. Patient has no new medical complaints this morning. Objective: GENERAL APPEARANCE: elderly, NAD, lying comfortably in bed HEENT: NC/AT, edentulous CARDIOVASCULAR: systolic click, RRR, systolic murmur LUNGS: CTA B/L ABDOMEN: soft, NT, +BS EXTREMITIES: no edema NEUROLOGICAL: no gross focal deficits PSYCHIATRIC: AAOx3 ASSESSMENT: 68 yo female with extensive cardiac history admitted for malik-op monitoring for planned cholecystectomy #cholelithiasis - POD #1 s/p lap choly - d/w cardiology, discontinue aspirin, defibrillator to be de-activated prior to surgery; cardiac risk stratification already completed by dr. gomes #AVR/MVR/afib - rate controlled - resumed heparin - warfarin - target INR 2.5-3.5 - follow as per cardiology #CAD/CABG - continue stating, d/w cardiology regarding aspirin - on hold #HTN - continue home meds #GERD - protonix #DVT prophylaxis - as above - heparin/warfarin Dispo: heparin gtt until therapeutic on warfarin VS,Fishbone, I+O VS, Fishbone, I+O Laboratory Tests 01/06/19 06:11 Red Blood Count 3.94 L, Mean Corpuscular Volume 85.0, Mean Corpuscular Hemoglobin 28.7, Mean Corpuscular Hemoglobin Concent 33.7, Red Cell Distribution Width 13.6, Calcium Level 9.0 Vital Signs Date Time Temp Pulse Resp B/P (MAP) Pulse Ox O2 Delivery O2 Flow Rate FiO2 01/06/19 06:00 98.5 70 18 91/54 (66) 92 01/05/19 11:07 2 01/02/19 11:40 Room Air I&O- Last 24 Hours up to 6 AM 01/06/19 05:59 Intake Total 2950 ml Output Total 70 ml Balance 2880 ml SHAYLEE GARDUNO MD Jan 06, 2019 10:36
[2019-01-06 14:00] VITALS: BP 93/53
--- NOTE | 2019-01-06 15:08 | IPN ---
DATE: 01/06/2019 The patient was seen at approximately 8:30 in the morning. HISTORY: The patient is now postoperative day #1 from her laparoscopic cholecystectomy for a recent history of gallstone pancreatitis. The patient had been admitted several days preoperatively to operate through a heparin window for a history of mechanical cardiac valve. She is normally on Coumadin. At her surgery on January 05, there was some spillage of bile, and a Sam-Jeffers drain was left in the subhepatic space. Today the patient denies any significant pain. She is tolerating a full liquid diet. Vital signs show that the patient has been afebrile since surgery. Pulse is in the 70s, and her blood pressure is good. Room air oxygen saturation is normal. Intake and output shows that yesterday she had 3 liters recorded in with a recorded output of 70 mL, 20 of which was from her drain. She does have three voids recorded, but a volume was not measured. Today she has had 800 mL of urine recorded. PHYSICAL EXAMINATION: The patient is alert and oriented. She appears comfortable. Heart exam shows a regular rhythm. The lungs are clear. The abdomen is soft with bowel sounds present, and she has small dressings over her incisions. She has a drain in place with a minimal amount of drainage. Laboratory studies show a white count of 12, hemoglobin of 11, hematocrit of 34, and a platelet count of 157,000. Her chemistry profile showed a sodium of 136, potassium 4.3, chloride 103, CO2 of 27, BUN of 20, creatinine 1.1, and a glucose of 119. She has been off her heparin drip since before surgery yesterday. Her Coumadin has not been restarted. IMPRESSION: The patient is doing well following her laparoscopic cholecystectomy. She has a drain in place, which has little output. PLAN: The patient's heparin drip will be restarted, as there is no need to continue holding this. She will be allowed to be back on her heparin, which can be adjusted by the hospitalist. I encouraged her to be up out of bed. She can take a regular diet as tolerated. [facility]
[2019-01-06] MEDS: WARFARIN SOD 5 MG TAB PO SCH (16:43)
[2019-01-06] MEDS: ATORVASTATIN 20 MG TAB PO SCH (21:21)
[2019-01-06] MEDS: MONTELUKAST 10 MG TAB PO SCH (21:21)
[2019-01-06] MEDS: LISINOPRIL 5 MG TAB PO SCH (21:22)
[2019-01-06 22:00] VITALS: BP 115/44
[2019-01-07] MEDS: SLF 3 ML SYR IV SCH ×4 (05:03→22:00)
[2019-01-07 06:00] VITALS: BP 110/56
[2019-01-07 06:32] LABS: INR 1.13; PROTHROMBIN TIME 14.2 SECONDS (11.8-14.0)
[2019-01-07 07:40] LABS: PARTIAL THROMBOPLASTIN TIME 135.7 SECONDS (25.0-38.4)
[2019-01-07] MEDS: SPIRONOLACTONE 25 MG TAB PO SCH (08:41)
[2019-01-07] MEDS: POTASSIUM CHLORIDE 10 MEQ SR TABLET PO SCH (08:41)
[2019-01-07] MEDS: CARVedilol 3.125 MG TAB PO SCH ×2 (08:41→21:00)
[2019-01-07] MEDS: FUROSEMIDE 40 MG TAB PO SCH (08:41)
[2019-01-07] MEDS: FOLIC ACID 1 MG TAB PO SCH (08:41)
--- NOTE | 2019-01-07 10:18 | IPNPDOC ---
Text Note Date of Service The patient was seen on 01/07/19. NOTE Subjective: Patient seen and examined at bedside. No acute overnight events reported. Patient has no new medical complaints this morning. Objective: GENERAL APPEARANCE: elderly, NAD, lying comfortably in bed HEENT: NC/AT, edentulous CARDIOVASCULAR: systolic click, RRR, systolic murmur LUNGS: CTA B/L ABDOMEN: soft, NT, +BS, TONY drain in place EXTREMITIES: no edema NEUROLOGICAL: no gross focal deficits PSYCHIATRIC: AAOx3 ASSESSMENT: 68 yo female with extensive cardiac history , s/p lap choly #cholelithiasis - POD #2 s/p lap choly - d/w cardiology, discontinue aspirin, defibrillator to be de-activated prior to surgery; cardiac risk stratification already completed by dr. gomes #AVR/MVR/afib - rate controlled - resumed heparin - warfarin - target INR 2.5-3.5 - follow as per cardiology #CAD/CABG - continue stating, d/w cardiology regarding aspirin - on hold #HTN - continue home meds #GERD - protonix #DVT prophylaxis - as above - heparin/warfarin Dispo: heparin gtt until therapeutic on warfarin VS,Fishbone, I+O VS, Fishbone, I+O Vital Signs Date Time Temp Pulse Resp B/P (MAP) Pulse Ox O2 Delivery O2 Flow Rate FiO2 01/07/19 08:41 70 115/56 01/07/19 06:00 98.0 95 01/06/19 22:00 18 01/05/19 11:07 2 01/02/19 11:40 Room Air I&O- Last 24 Hours up to 6 AM 01/07/19 06:00 Intake Total 1020 ml Output Total 1430 ml Balance -410 ml SHAYLEE GARDUNO MD Jan 07, 2019 10:18
[2019-01-07 14:00] VITALS: BP 100/52
[2019-01-07] MEDS: WARFARIN SOD 5 MG TAB PO SCH (15:44)
[2019-01-07] MEDS: HEPARIN DRIP 25,000 UNITS in APPROPRIATE DILUENT 1 EA IV SCH (15:47)
--- NOTE | 2019-01-07 16:38 | IPN ---
DATE: 01/07/2019 HISTORY: The patient is now postoperative day #2 from a laparoscopic cholecystectomy. She has a history of gallstone pancreatitis within the last several months. She has had a mechanical heart valve placed and so was admitted to have her Coumadin wear off and do the surgery through a heparin window. She was put back on her heparin yesterday and her Coumadin was restarted last evening. She is doing well from the surgery overall and is tolerating a diet well and denies any pain. Vital signs show that she has been afebrile since surgery. Her pulse is in the 70s and her blood pressure is normal. Intake and output shows that yesterday she had 1000 in with 800 mL of urine output. She has had a bowel movement today and her urine output is good. Her drain has only 30 mL recorded out today. PHYSICAL EXAMINATION: The patient is alert and oriented. She is quite comfortable lying quietly in the bed. Heart exam shows a regular rhythm. Her lungs are clear. The abdomen is soft without any undue tenderness. Her drain has a minimal amount of serosanguineous fluid in the bulb at this point. Laboratory studies show that her PTT was quite elevated at 6 o'clock this morning on her heparin drip at 136. This was appropriately adjusted per protocol and her PTT is down to 70 at 2:15 p.m. She is due for another dose of Coumadin this evening. IMPRESSION: The patient is doing very well following her surgery. Her INR was only 1.1 this morning and this may take a couple of days for her Coumadin to become therapeutic. PLAN: I will have the patient's drain removed today as this does not appear to be necessary any longer. From the point of view of the surgeon the patient can be discharged whenever her Coumadin is therapeutic again.
[2019-01-07] MEDS: LISINOPRIL 5 MG TAB PO SCH (21:00)
[2019-01-07] MEDS: HEPARIN SOD (PORCINE) 5000 UNITS/ML VIAL IV PRN (21:14)
[2019-01-07] MEDS: MONTELUKAST 10 MG TAB PO SCH (21:19)
[2019-01-07] MEDS: ATORVASTATIN 20 MG TAB PO SCH (21:19)
[2019-01-07 22:00] VITALS: BP 108/56
[2019-01-08] MEDS: SLF 3 ML SYR IV SCH ×3 (05:56→20:55)
[2019-01-08 06:00] VITALS: BP 106/60
[2019-01-08 06:18] LABS: HEMATOCRIT 34.7 % (36.0-47.0); HEMOGLOBIN 11.3 g/dl (12.0-15.5); MEAN CORPUSCULAR HGB CONC 32.6 g/dl (32.0-36.5); MEAN CORPUSCULAR VOLUME 85.9 fl (80.0-96.0); PLATELET COUNT, AUTOMATED 149 10^3/uL (150-450); RED BLOOD COUNT 4.04 10^6/uL (4.00-5.40); WHITE BLOOD COUNT 12.5 10^3/uL (4.0-10.0)
[2019-01-08 06:24] LABS: INR 1.14; PROTHROMBIN TIME 14.3 SECONDS (11.8-14.0)
[2019-01-08] MEDS: ACETAMINOPHEN 500 MG TAB PO PRN ×3 (06:31→20:54)
[2019-01-08 06:36] LABS: CALCIUM LEVEL 9.3 MG/DL (8.8-10.2); CREATININE FOR GFR 1.14 MG/DL (0.55-1.30); GLOMERULAR FILTRATION RATE 50.6 (>45); POTASSIUM SERUM 4.3 MEQ/L (3.5-5.1)
[2019-01-08] MEDS: CARVedilol 3.125 MG TAB PO SCH ×2 (09:00→20:54)
[2019-01-08] MEDS: FOLIC ACID 1 MG TAB PO SCH (09:19)
[2019-01-08] MEDS: FUROSEMIDE 40 MG TAB PO SCH (09:19)
[2019-01-08] MEDS: POTASSIUM CHLORIDE 10 MEQ SR TABLET PO SCH (09:19)
[2019-01-08] MEDS: SPIRONOLACTONE 25 MG TAB PO SCH (09:19)
--- NOTE | 2019-01-08 11:04 | IPNPDOC ---
Text Note Date of Service The patient was seen on 01/08/19. NOTE Subjective: Patient seen and examined at bedside. No acute overnight events reported. Patient has no new medical complaints this morning. Objective: GENERAL APPEARANCE: elderly, NAD, lying comfortably in bed HEENT: NC/AT, edentulous CARDIOVASCULAR: systolic click, RRR, systolic murmur LUNGS: CTA B/L ABDOMEN: soft, NT, +BS EXTREMITIES: no edema NEUROLOGICAL: no gross focal deficits PSYCHIATRIC: AAOx3 ASSESSMENT: 68 yo female with extensive cardiac history admitted for malik-op monitoring for planned cholecystectomy #cholelithiasis - POD #3 s/p lap choly #AVR/MVR/afib - rate controlled - continue heparin - warfarin - target INR 2.5-3.5 #CAD/CABG - continue statin, previously d/w cardiology regarding aspirin - on hold #HTN - continue home meds #GERD - protonix #DVT prophylaxis - as above - heparin/warfarin Dispo: heparin gtt until therapeutic on warfarin, target INR 2.5-3.5, monitor H?H VS,[facility], I+O VS, [facility], I+O Laboratory Tests 01/08/19 05:58 Red Blood Count 4.04, Mean Corpuscular Volume 85.9, Mean Corpuscular Hemoglobin 28.0, Mean Corpuscular Hemoglobin Concent 32.6, Red Cell Distribution Width 14.3 , Calcium Level 9.3 Vital Signs Date Time Temp Pulse Resp B/P (MAP) Pulse Ox O2 Delivery O2 Flow Rate FiO2 01/08/19 09:00 66 107/56 01/08/19 06:00 98.0 16 94 01/05/19 11:07 2 01/02/19 11:40 Room Air I&O- Last 24 Hours up to 6 AM 01/08/19 06:00 Intake Total 1213 ml Output Total 1620 ml Balance -407 ml SHAYLEE GARDUNO MD Jan 08, 2019 11:04
[2019-01-08] MEDS: HEPARIN SOD (PORCINE) 5000 UNITS/ML VIAL IV PRN (12:15)
[2019-01-08 14:00] VITALS: BP 134/94
[2019-01-08] MEDS: WARFARIN SOD 5 MG TAB PO SCH (18:39)
[2019-01-08] MEDS: MONTELUKAST 10 MG TAB PO SCH (20:53)
[2019-01-08] MEDS: LISINOPRIL 5 MG TAB PO SCH (20:53)
[2019-01-08] MEDS: ATORVASTATIN 20 MG TAB PO SCH (20:54)
[2019-01-08 22:00] VITALS: BP 112/66
[2019-01-09] MEDS: HEPARIN DRIP 25,000 UNITS in APPROPRIATE DILUENT 1 EA IV SCH (04:25)
[2019-01-09] MEDS: SLF 3 ML SYR IV SCH ×4 (05:09→20:45)
[2019-01-09 06:15] LABS: HEMATOCRIT 29.1 % (36.0-47.0); HEMOGLOBIN 9.6 g/dl (12.0-15.5); MEAN CORPUSCULAR HEMOGLOBIN 28.5 pg (27.0-33.0); MEAN CORPUSCULAR VOLUME 86.4 fl (80.0-96.0); PLATELET COUNT, AUTOMATED 164 10^3/uL (150-450); RED BLOOD COUNT 3.37 10^6/uL (4.00-5.40); WHITE BLOOD COUNT 6.8 10^3/uL (4.0-10.0)
[2019-01-09 06:17] LABS: INR 1.6; PROTHROMBIN TIME 18.8 SECONDS (11.8-14.0)
[2019-01-09 06:19] LABS: PARTIAL THROMBOPLASTIN TIME 69.3 SECONDS (25.0-38.4)
[2019-01-09 06:26] LABS: CREATININE FOR GFR 1.9 MG/DL (0.55-1.30); GLOMERULAR FILTRATION RATE 28.1 (>45); POTASSIUM SERUM 4.9 MEQ/L (3.5-5.1)
[2019-01-09 06:50] VITALS: BP 75/43
[2019-01-09] MEDS ORDERED: NS 1,000 ML IV ONE (07:00)
[2019-01-09 08:00] VITALS: BP 91/54
[2019-01-09 08:14] VITALS: BP 91/54
[2019-01-09] MEDS: FUROSEMIDE 40 MG TAB PO SCH (08:32)
[2019-01-09] MEDS: SPIRONOLACTONE 25 MG TAB PO SCH (08:32)
[2019-01-09] MEDS: CARVedilol 3.125 MG TAB PO SCH ×2 (08:32→20:42)
[2019-01-09 09:41] LABS: HEMATOCRIT 27.1 % (36.0-47.0); HEMOGLOBIN 8.8 g/dl (12.0-15.5)
[2019-01-09] MEDS: POTASSIUM CHLORIDE 10 MEQ SR TABLET PO SCH (09:48)
[2019-01-09] MEDS: FOLIC ACID 1 MG TAB PO SCH (09:48)
[2019-01-09] MEDS: SODIUM CHLORIDE 0.9% 1000ML IV ONE ×2 (09:54→09:55)
[2019-01-09] MEDS: ACETAMINOPHEN 500 MG TAB PO PRN ×2 (10:25→20:45)
[2019-01-09] MEDS ORDERED: SENNA 8.6 MG TAB (SENOKOT) PO PRN (10:30)
[2019-01-09] MEDS: NS 1,000 ML IV SCH ×2 (10:40→20:42)
--- NOTE | 2019-01-09 11:41 | REP ---
CT ABDOMEN AND PELVIS WITHOUT IV OR ORAL CONTRAST: HISTORY: Rule-out bleed. Recent cholecystectomy. Comparison CT study October 20, 2018 and June 23, 2012. CT FINDINGS: Digital preliminary advance scout radiograph demonstrates a valve replacement, median sternotomy wires and multiple pacemaker leads in the enlarged right heart silhouette. There are clips in right upper quadrant. Bowel gas pattern is unremarkable. Axial CT images show coarse pleuroparenchymal fibrosis in the lower lobes of the lungs bilaterally. There is a nodular density in the right base at the top of the imaging field of view which measures 9 mm in diameter and which is unchanged from the October 20, 2018 prior study. There are is marked enlargement of the right atrium unchanged. Right heart enlargement is observed as well. There is a mitral valve replacement. Transvenous and epicardial pacemaker leads are noted. There is linear calcification in the wall of the right atrium unchanged. Calcific pleural plaquing is noted in the right base. There is a fairly large right rectus sheath hematoma which appears acute. This extends over an elongate craniocaudal imaging span measuring approximately 19 cm. There is a small subcutaneous tract-like collection of blood and gas in the right upper quadrant at the inferior costal margin consistent with postoperative change. There are other areas of a subcutaneous tract like gas and localized hemorrhage in the right flank anterolaterally. There is a fluid collection adjacent to the gallbladder fossa consistent with a small sub-hepatic hematoma. This is posterior to cholecystectomy clips and measures approximately 5.6 cm in greatest diameter. It contains a fluid-fluid level. There is some fullness in the superior portion of the head of the pancreas as well which is new from the October 20, [address] study. This is of uncertain significance but most likely represents postoperative change as well. There are two areas of high-density fluid in the peritoneal, one in the cul-de-sac and the other just above this anterior and superior to the uterus. Moderate formed stool seen in the rectum. No evidence of bowel obstruction. There is no evidence of free intraperitoneal air. IMPRESSION: 1. Large 19 x 8.3 x 3.5 cm right rectus sheath hematoma. 2. Postoperative changes in the right anterolateral and superior abdominal wall. 3. 5.6 cm hematoma in the right subhepatic space. 4. Small right hemoperitoneum. 5. Fullness in the pancreatic head question postoperative changes, new from October 20, 2018.6. 9 mm pulmonary nodule in the right base. Electronically Signed by Sánchez Willson MD 01/09/2019 01:04 P
--- NOTE | 2019-01-09 13:19 | IPNPDOC ---
Subjective General Date/Time Seen The patient was seen on 01/09/19 at 13:16. Subject Chief Complaint/History The patient is a 68-year-old female admitted with a reason for visit of Cholecystectomy Planned. Patient had bleeding yesterday looks to be from a rectus sheath hematoma on CT. She does have fullness in the right side of the abdomen she is complaining of mild tenderness over the area. After the event yesterday morning she is feeling better. She has so far received a unit of blood and she says she felt better this morning and is able to tolerate getting out of bed and ambulating in the room. She denies any lightheadedness, nausea, vomiting, chest pain, shortness of breath. Current Medications Current Medications Current Medications Medications (Trade) Dose Ordered Sig/Nam Route PRN Reason Start Time Stop Time Status Last Admin Dose Admin Acetaminophen (Tylenol Tab) 1,000 mg Q6H PRN PO PAIN 01/02/19 12:15 01/09/19 10:25 Atorvastatin Calcium (Lipitor) 20 mg QPM PO 01/02/19 21:00 01/08/19 20:54 Carvedilol (COReg) 3.125 mg BID PO 01/02/19 21:00 01/08/19 20:54 Fentanyl Citrate (Sublimaze) 25 mcg Q5MP PRN IV MODERATE PAIN (PS 4-7) 01/05/19 10:30 01/05/19 11:30 DC Folic Acid (Folic Acid) 1 mg DAILY PO 01/03/19 09:00 01/09/19 09:48 Furosemide (Lasix) 40 mg DAILY PO 01/03/19 09:00 01/08/19 09:19 Heparin Sodium (Porcine) (Heparin) ASDIRECTED PRN IV SEE LABEL COMMENTS 01/02/19 12:15 01/05/19 10:14 DC 01/03/19 14:30 Heparin Sodium (Porcine) (Heparin) ASDIRECTED PRN IV SEE LABEL COMMENTS 01/06/19 07:45 01/09/19 10:30 DC 01/08/19 12:15 Heparin Sodium (Porcine) 13299 units/IV Miscellaneous Supplies 250 ml @ 0 mls/hr Q0M IV 01/02/19 12:13 01/05/19 10:12 DC 01/04/19 01:04 Heparin Sodium (Porcine) 44295 units/IV Miscellaneous Supplies 250 ml @ 0 mls/hr Q0M IV 01/06/19 07:34 01/09/19 10:30 DC 01/09/19 04:25 Home Med (Med Rec Complete!) ASDIRECTED XX 01/02/19 09:30 01/02/19 09:30 DC Lactated Ringer's 1,000 ml @ 100 mls/hr Q10H IV 01/05/19 10:30 01/05/19 11:30 DC Lisinopril (Prinivil) 5 mg QPM PO 01/02/19 21:00 01/08/19 20:53 Montelukast Sodium (Singulair) 10 mg QPM PO 01/02/19 21:00 01/08/19 20:53 Non-Formulary Medication (Heparin Iv Rate Change Documentation ml/ Hr) ASDIRECTED XX 01/02/19 12:15 01/05/19 10:14 DC 01/03/19 14:31 Non-Formulary Medication (Heparin Iv Rate Change Documentation ml/ Hr) ASDIRECTED XX 01/06/19 07:45 01/09/19 10:31 DC 01/08/19 18:38 Ondansetron HCl (ZOFRAN INJection) 4 mg Q4HP PRN IV NAUSEA OR VOMITING 01/05/19 10:30 01/05/19 11:30 DC Oxycodone HCl (Roxicodone, Oxyir) 5 mg ASDIRECTED PRN PO MILD/MODERATE PAIN (PS 1-7) 01/05/19 10:30 01/05/19 11:30 DC Potassium Chloride (Micro-K Extencaps) 10 meq DAILY PO 01/03/19 09:00 01/09/19 09:48 Senna (Senokot) 1 tab DAILYPRN PRN PO CONSTIPATION 01/09/19 10:30 Sodium Chloride 1,000 ml @ 100 mls/hr Q10H IV 01/09/19 10:45 01/09/19 10:40 Sodium Chloride (Saline Lock Flush) 2 ml ASDIRECTED PRN IV SEE LABEL COMMENTS 01/03/19 09:00 Sodium Chloride (Saline Lock Flush) 2 ml SLF IV 01/03/19 14:00 01/07/19 05:03 Spironolactone (Aldactone) 25 mg DAILY PO 01/03/19 09:00 01/08/19 09:19 Warfarin Sodium (Coumadin) 5 mg DAILY@17 PO 01/06/19 17:00 01/09/19 12:19 DC 01/08/19 18:39 Allergies Coded Allergies: simvastatin (Verified Allergy, Mild, RASH, 01/02/19) Objective Physical Examination Examination GENERAL APPEARANCE: Overall looks comfortable. SKIN: Warm and dry. HEENT: Normocephalic, atraumatic. mild pale palpebral conjunctiva, anicteric sclerae. Lips and mucosa appear moist. NECK: Supple, no thyromegaly. No obvious jugular venous distention. LUNGS: Clear to auscultation bilaterally. No wheezing appreciated. HEART: No chest wall abnormalities. Regular rate and rhythm (+) murmurs, click. ABDOMEN: Abdomen is the right side looks more prominent, full appearance as compared to the left side of the abdomen consistent with the rectal sheath hematoma. No noticeable bruising, ecchymosis or skin breakdown over the area. This area is mildly tender on palpation. Mildly distended on appearance, soft, . EXTREMITIES: Extremities have no deformities. No edema identified. Vital Signs Vital Signs Date Time Temp Pulse Resp B/P (MAP) Pulse Ox O2 Delivery O2 Flow Rate FiO2 01/09/19 08:32 73 91/53 01/09/19 08:00 97.3 18 95 01/05/19 11:07 2 I&Os I&O- Last 24 Hours up to 6 AM 01/09/19 06:00 Intake Total 801 ml Output Total 1050 ml Balance -249 ml Laboratory Data Labs 24H Laboratory Tests 2 01/08/19 17:59: Activated Partial Thromboplast Time 110.9H 01/09/19 00:18: Activated Partial Thromboplast Time 76.8H 01/09/19 05:41: Activated Partial Thromboplast Time 69.3H, Nucleated Red Blood Cells % (auto) 0.0, Prothrombin Time 18.8H, Prothromb Time International Ratio 1.60, Anion Gap 8, Glomerular Filtration Rate 28.1L, Blood Urea Nitrogen 30H, Creatinine 1.90#H, Sodium Level 137, Potassium Level 4.9, Chloride Level 102, Carbon Dioxide Level 27, Calcium Level 9.0 CBC/BMP Laboratory Tests 01/09/19 05:41 Red Blood Count 3.37 L, Mean Corpuscular Volume 86.4, Mean Corpuscular Hemoglobin 28.5, Mean Corpuscular Hemoglobin Concent 33.0, Red Cell Distribution Width 14.2, Calcium Level 9.0 01/09/19 09:28 Microbiology Microbiology 01/04/19 Stool Occult Blood (JOSIE) - Final, Complete Impression Postop day 5 for laparoscopic cholecystectomy for prior history of gallstone pancreatitis Mechanical heart valve on anticoagulation New right rectus sheath hematoma Small subcapsular hematoma on the liver Posthemorrhagic anemia Slight elevation of the LFTs She has a slight drop on her hemoglobin and hematocrit from yesterday. She is getting 2 units of packed RBCs today. This morning's INR is 2.16. Tricky situation to balance her need for anticoagulation for her mechanical heart valve and close monitoring if there is any persistent bleeding of the rectus sheath hematoma. This would suggest holding off giving her Coumadin today and reevaluate for stability of the count post transfusion for her next 24 hours. Her LFTs are noted to be mildly elevated. She's not having any symptoms of abdominal discomfort save for the fullness around the rectus sheath hematoma. This could be reabsorption or could be dropped stones during the surgery still continue to monitor this for now. Plan / VTE VTE Prophylaxis Ordered?: No CASEY OCHOA MD Jan 09, 2019 13:19
[2019-01-09 14:00] VITALS: BP 99/48
[2019-01-09 14:22] LABS: HEMATOCRIT 26.2 % (36.0-47.0); HEMOGLOBIN 8.6 g/dl (12.0-15.5)
[2019-01-09 16:57] VITALS: BP 105/62
[2019-01-09] MEDS ORDERED: WARFARIN SOD 2 MG TAB PO ONE (17:00)
--- NOTE | 2019-01-09 18:22 | IPNPDOC ---
Text Note Date of Service The patient was seen on 01/09/19. NOTE Interim events: 1. Hypotensive this morning to systolic 72. Was asymptomatic and speaking in full sentences during this time 2. Blood pressure improved with 2L NS bolus to systolic 90s. 3. AM meds with BP lowering effect were held (ACEi, beta radha, aldactone, loop diuretic) 4. Meanwhile AM labs showed acute H/H drop and new JAROD 5. Surgery was made aware and suggested repeat H/H that continued to drop and had noncontrast abdominal CT that showed a large right rectus sheath hematoma and 5.6 cm hematoma in the right subhepatic space. Surgery recommended holding heparin gtt and reducing warfarin dose and icepacks for hemostasis. 6. After 2L NS bolus, placed on maintenace fluids with steady low-normal BP. Subjective: -She remained asymptomatic throughout the above events, is reporting being constipated with otherwise no mild abdominal pain. Objective: VITALS: as stated below GENERAL APPEARANCE: elderly, NAD, lying comfortably in bed HEENT: NC/AT, edentulous CARDIOVASCULAR: systolic click, RRR, systolic murmur LUNGS: CTA B/L ABDOMEN: soft, NT, +BS, no significant ecchymoses EXTREMITIES: no edema NEUROLOGICAL: no gross focal deficits PSYCHIATRIC: AAOx3 IMAGING: non con CT A/P: 01/09/2019: 1. Large 19 x 8.3 x 3.5 cm right rectus sheath hematoma. 2. Postoperative changes in the right anterolateral and superior abdominal wall. 3. 5.6 cm hematoma in the right subhepatic space. 4. Small right hemoperitoneum. 5. Fullness in the pancreatic head question postoperative changes, new from October 20, 2018.6. 9 mm pulmonary nodule in the right base. ASSESSMENT: 68 yo woman with extensive cardiac history admitted for malik-op monitoring s/p cholecystectomy now c/b post-op surgical bleeding with a CT showing a large right rectus sheath hematoma and right subhepatic space hematoma with associated anemia that is now stabilizing and otherwise clinically stable. #cholelithiasis -POD #4 s/p lap ramesh now c/b by post op bleeding -close monitoring of bleeding control with CBCs and hemostasis, if persistent, to call surgery, appreciate comanagement given this being my first day onboard #Acute anemia: 2/2 to bleed - with associated hypotension, with CT showing a large right rectus sheath hematoma and a right subhepatic space hematoma with R hemoperitoneum - check PM CBC at 8PM and 6AM CBC - hold heparin gtt - reduce warfarin dose to 2mg and per surgery to consider not bridging altogether given the bleeding despite history of labile INRs Hypotension: -In the setting of post op abdominal bleeding -s/p 2L NS, now on maintenance -continue holding all BP meds at this time #AVR/MVR/afib - rate controlled, holding BB and may resume if increasingly tachycardic with permissive BPs - discontinue heparin in the setting of postop - reduce warfarin to 2mg PO - target INR 2.5-3.5 #CAD/CABG - continue statin, no aspirin per cardiology #HTN - holding home meds per above #GERD - protonix #DVT prophylaxis - warfarin Dispo: Pending resolution of active bleeding, warfarin, target INR 2.5-3.5 VS,Fishbone, I+O VS, Fishbone, I+O Laboratory Tests 01/09/19 05:41 Red Blood Count 3.37 L, Mean Corpuscular Volume 86.4, Mean Corpuscular Hemoglobin 28.5, Mean Corpuscular Hemoglobin Concent 33.0, Red Cell Distribution Width 14.2, Calcium Level 9.0 01/09/19 09:28 01/09/19 14:03 Vital Signs Date Time Temp Pulse Resp B/P (MAP) Pulse Ox O2 Delivery O2 Flow Rate FiO2 01/09/19 16:57 97.1 71 19 105/62 (76) 97 01/05/19 11:07 2 I&O- Last 24 Hours up to 6 AM 01/09/19 05:59 Intake Total 804 ml Output Total 1050 ml Balance -246 ml SHAE JOINER MD Jan 09, 2019 18:22
[2019-01-09 20:00] VITALS: BP 106/64
[2019-01-09 20:21] LABS: HEMATOCRIT 25.7 % (36.0-47.0); HEMOGLOBIN 8.4 g/dl (12.0-15.5)
[2019-01-09] MEDS: LISINOPRIL 5 MG TAB PO SCH (20:43)
[2019-01-09] MEDS: ATORVASTATIN 20 MG TAB PO SCH (20:44)
[2019-01-09] MEDS: MONTELUKAST 10 MG TAB PO SCH (20:44)
[2019-01-10 02:28] LABS: HEMATOCRIT 23.8 % (36.0-47.0); HEMOGLOBIN 7.7 g/dl (12.0-15.5)
[2019-01-10] MEDS: SLF 3 ML SYR IV SCH ×3 (05:14→20:34)
[2019-01-10 05:19] LABS: HEMATOCRIT 23.9 % (36.0-47.0); HEMOGLOBIN 7.9 g/dl (12.0-15.5); MEAN CORPUSCULAR HEMOGLOBIN 28.6 pg (27.0-33.0); MEAN CORPUSCULAR HGB CONC 33.1 g/dl (32.0-36.5); MEAN CORPUSCULAR VOLUME 86.6 fl (80.0-96.0); PLATELET COUNT, AUTOMATED 134 10^3/uL (150-450); RED BLOOD COUNT 2.76 10^6/uL (4.00-5.40); WHITE BLOOD COUNT 7.4 10^3/uL (4.0-10.0)
[2019-01-10 05:33] LABS: INR 2.18; PROTHROMBIN TIME 24.1 SECONDS (11.8-14.0)
[2019-01-10 05:34] LABS: PARTIAL THROMBOPLASTIN TIME 39.1 SECONDS (25.0-38.4)
[2019-01-10 05:48] LABS: ALBUMIN 2.6 GM/DL (3.2-5.2); ALT/SGPT 318 U/L (12-78); BILIRUBIN,TOTAL 1.2 MG/DL (0.2-1.0); BLOOD UREA NITROGEN 18 MG/DL (7-18); CALCIUM LEVEL 8.1 MG/DL (8.8-10.2); CARBON DIOXIDE LEVEL 23 MEQ/L (21-32); CHLORIDE LEVEL 111 MEQ/L (98-107); CREATININE FOR GFR 0.96 MG/DL (0.55-1.30); GLOMERULAR FILTRATION RATE > 60.0 (>45); GLUCOSE, FASTING 107 MG/DL (70-100); SODIUM LEVEL 142 MEQ/L (136-145); TOTAL PROTEIN 5.6 GM/DL (6.4-8.2)
[2019-01-10 06:00] VITALS: BP 117/56
[2019-01-10] MEDS: POTASSIUM CHLORIDE 10 MEQ SR TABLET PO SCH (08:09)
[2019-01-10] MEDS: SPIRONOLACTONE 25 MG TAB PO SCH (08:10)
[2019-01-10] MEDS: CARVedilol 3.125 MG TAB PO SCH ×2 (08:10→20:33)
[2019-01-10] MEDS: FOLIC ACID 1 MG TAB PO SCH (08:11)
[2019-01-10] MEDS: FUROSEMIDE 40 MG TAB PO SCH (08:11)
[2019-01-10] MEDS: NS 1,000 ML IV SCH ×3 (08:14→20:37)
[2019-01-10] MEDS: ACETAMINOPHEN 500 MG TAB PO PRN (08:26)
--- NOTE | 2019-01-10 08:34 | IPNPDOC ---
Subjective General Date/Time Seen The patient was seen on 01/10/19 at 08:27. Subject Chief Complaint/History The patient is a 68-year-old female admitted with a reason for visit of Cholecystectomy Planned. Patient feeling better today. Hemodynamically stable. Reports feeling constipated and mild right lower quadrant discomfort. No distention, nausea, or vomiting. Afebrile. Current Medications Current Medications Current Medications Medications (Trade) Dose Ordered Sig/Nam Route PRN Reason Start Time Stop Time Status Last Admin Dose Admin Acetaminophen (Tylenol Tab) 1,000 mg Q6H PRN PO PAIN 01/02/19 12:15 01/09/19 20:45 Atorvastatin Calcium (Lipitor) 20 mg QPM PO 01/02/19 21:00 01/09/19 20:44 Carvedilol (COReg) 3.125 mg BID PO 01/02/19 21:00 01/10/19 08:10 Fentanyl Citrate (Sublimaze) 25 mcg Q5MP PRN IV MODERATE PAIN (PS 4-7) 01/05/19 10:30 01/05/19 11:30 DC Folic Acid (Folic Acid) 1 mg DAILY PO 01/03/19 09:00 01/10/19 08:11 Furosemide (Lasix) 40 mg DAILY PO 01/03/19 09:00 01/10/19 08:11 Heparin Sodium (Porcine) (Heparin) ASDIRECTED PRN IV SEE LABEL COMMENTS 01/02/19 12:15 01/05/19 10:14 DC 01/03/19 14:30 Heparin Sodium (Porcine) (Heparin) ASDIRECTED PRN IV SEE LABEL COMMENTS 01/06/19 07:45 01/09/19 10:30 DC 01/08/19 12:15 Heparin Sodium (Porcine) 44352 units/IV Miscellaneous Supplies 250 ml @ 0 mls/hr Q0M IV 01/02/19 12:13 01/05/19 10:12 DC 01/04/19 01:04 Heparin Sodium (Porcine) 32887 units/IV Miscellaneous Supplies 250 ml @ 0 mls/hr Q0M IV 01/06/19 07:34 01/09/19 10:30 DC 01/09/19 04:25 Home Med (Med Rec Complete!) ASDIRECTED XX 01/02/19 09:30 01/02/19 09:30 DC Lactated Ringer's 1,000 ml @ 100 mls/hr Q10H IV 01/05/19 10:30 01/05/19 11:30 DC Lisinopril (Prinivil) 5 mg QPM PO 01/02/19 21:00 01/08/19 20:53 Montelukast Sodium (Singulair) 10 mg QPM PO 01/02/19 21:00 01/09/19 20:44 Non-Formulary Medication (Heparin Iv Rate Change Documentation ml/ Hr) ASDIRECTED XX 01/02/19 12:15 01/05/19 10:14 DC 01/03/19 14:31 Non-Formulary Medication (Heparin Iv Rate Change Documentation ml/ Hr) ASDIRECTED XX 01/06/19 07:45 01/09/19 10:31 DC 01/08/19 18:38 Ondansetron HCl (ZOFRAN INJection) 4 mg Q4HP PRN IV NAUSEA OR VOMITING 01/05/19 10:30 01/05/19 11:30 DC Oxycodone HCl (Roxicodone, Oxyir) 5 mg ASDIRECTED PRN PO MILD/MODERATE PAIN (PS 1-7) 01/05/19 10:30 01/05/19 11:30 DC Potassium Chloride (Micro-K Extencaps) 10 meq DAILY PO 01/03/19 09:00 01/10/19 08:09 Senna (Senokot) 1 tab DAILYPRN PRN PO CONSTIPATION 01/09/19 10:30 01/09/19 16:55 Sodium Chloride 1,000 ml @ 100 mls/hr Q10H IV 01/09/19 10:45 01/10/19 08:14 Sodium Chloride (Saline Lock Flush) 2 ml ASDIRECTED PRN IV SEE LABEL COMMENTS 01/03/19 09:00 Sodium Chloride (Saline Lock Flush) 2 ml SLF IV 01/03/19 14:00 01/10/19 05:14 Spironolactone (Aldactone) 25 mg DAILY PO 01/03/19 09:00 01/10/19 08:10 Warfarin Sodium (Coumadin) 5 mg DAILY@17 PO 01/06/19 17:00 01/09/19 12:19 DC 01/08/19 18:39 Allergies Coded Allergies: simvastatin (Verified Allergy, Mild, RASH, 01/02/19) Objective Physical Examination Examination GENERAL APPEARANCE:looks comfortable. SKIN: warm and dry. HEENT: anicteric slcerae, moist lips. NECK: no JV distention. LUNGS: Clear to auscultation bilaterally. No wheezing appreciated. HEART: regular rate, rhythm (+) click. ABDOMEN: Abdomen shows fullness over right side of abdomen consistent with significant rectus sheath hematoma. No skin ecchymosis, breakdown, minimally tender on direct palpation, soft, relatively flat on the left side. nontender over epigastric area. EXTREMITIES: Extremities have no deformities. No edema identified. Vital Signs Vital Signs Date Time Temp Pulse Resp B/P (MAP) Pulse Ox O2 Delivery O2 Flow Rate FiO2 01/10/19 08:10 70 129/87 01/10/19 06:00 96.8 18 97 01/05/19 11:07 2 I&Os I&O- Last 24 Hours up to 6 AM 01/10/19 06:00 Intake Total 5637 ml Output Total 1600 ml Balance 4037 ml Laboratory Data Labs 24H Laboratory Tests 2 01/10/19 05:10: Nucleated Red Blood Cells % (auto) 0.0, Prothrombin Time 24.1H, Prothromb Time International Ratio 2.18, Activated Partial Thromboplast Time 39.1H, Anion Gap 8, Glomerular Filtration Rate > 60.0, Blood Urea Nitrogen 18, Creatinine 0.96, Sodium Level 142, Potassium Level 4.0, Chloride Level 111H, Carbon Dioxide Level 23, Calcium Level 8.1L, Aspartate Amino Transf (AST/SGOT) 243H, Alanine Aminotransferase (ALT/SGPT) 318H, Alkaline Phosphatase 170H, Total Bilirubin 1.2H, Total Protein 5.6L, Albumin 2.6L, Albumin/Globulin Ratio 0.87L CBC/BMP Laboratory Tests 01/09/19 09:28 01/09/19 14:03 01/09/19 20:15 01/10/19 02:04 01/10/19 05:10 Red Blood Count 2.76 L, Mean Corpuscular Volume 86.6, Mean Corpuscular Hemoglobin 28.6, Mean Corpuscular Hemoglobin Concent 33.1, Red Cell Distribution Width 14.6 H, Calcium Level 8.1 L, Aspartate Amino Transf (AST/SGOT) 243 H, Alanine Aminotransferase (ALT/SGPT) 318 H, Alkaline Phosphatase 170 H, Total Bilirubin 1.2 H, Total Protein 5.6 L, Albumin 2.6 L Microbiology Microbiology 01/04/19 Stool Occult Blood (JOSIE) - Final, Complete Impression Postop day 5 for laparoscopic cholecystectomy for prior history of gallstone pancreatitis Mechanical heart valve on anticoagulation New right rectus sheath hematoma Small subcapsular hematoma on the liver Posthemorrhagic anemia Slight elevation of the LFTs ?Did she drop stones or this is from reabsorption, not clear as of yet. She's not complaining of any significant abdominal discomfort. so continue to monitor it for now. Check lipase/amylase with next blood draw. There is some fullness in the head of the pancreas on CT yesterday. Tricky situation on her anticoagulation with the slight drop of the hgb/hct. Clinically stable, no skin breakdown or not much discomfort from the rectus sheath hematoma. Suggest holding the coumadin for today and continue close monitoring for now. restart coumadin if blood count determined to be stable. Plan / VTE VTE Prophylaxis Ordered?: No VTE Exclusion Mechanical Proph: Other (on anticoagulation) VTE Exclusion Pharmacological: Bleeding Risk CASEY OCHOA MD Jan 10, 2019 08:34
[2019-01-10 12:53] LABS: HEMATOCRIT 32.4 % (36.0-47.0); HEMOGLOBIN 10.8 g/dl (12.0-15.5)
[2019-01-10 14:00] VITALS: BP 117/56
--- NOTE | 2019-01-10 15:04 | IPNPDOC ---
Text Note Date of Service The patient was seen on 01/10/19. NOTE Overnight events: Hgb continued to drop to 7.6 from 8s and was given 2 units of packed red blood cells Subjective: Sitting up eating breakfast this morning, reporting that she feels much better, with mild abdominal pain at the previously instrumented site. ROS: Pertinent negatives: No fever, chills, rigors, dizziness, palpitations, chest pain, back pain, worsening abdominal pain Pertinent positives: mild abdominal pain that is worst at the previous site of instrumentation with most pain with palpation. 12 point ROS is otherwise negative except for the above mentioned pertinents. Objective: VITALS: as stated below GENERAL APPEARANCE: Pleasant, conversational, NAD, lying comfortably in bed HEENT: NC/AT, dentures in place, MMM CARDIOVASCULAR: systolic click, RRR, systolic murmur LUNGS: CTAB ABDOMEN: +BS, mild distention, no noted purpura or ecchymoses, soft, tender at surgical sites and otherwise mild in all other regions. EXTREMITIES: WWP, no edema NEUROLOGICAL: no gross focal deficits PSYCHIATRIC: AAOx3 IMAGING: non con CT A/P: 01/09/2019: 1. Large 19 x 8.3 x 3.5 cm right rectus sheath hematoma. 2. Postoperative changes in the right anterolateral and superior abdominal wall. 3. 5.6 cm hematoma in the right subhepatic space. 4. Small right hemoperitoneum. 5. Fullness in the pancreatic head question postoperative changes, new from October 20, 2018.6. 9 mm pulmonary nodule in the right base. ASSESSMENT: 68 yo woman with extensive cardiac history admitted for malik-op monitoring s/p cholecystectomy now c/b post-op bleeding with a CT showing a larg e right rectus sheath hematoma and right subhepatic space hematoma with associated anemia s/p 2 units of blood, otherwise hemodynamically stable with ongoing monitoring for continued bleeding though likely tamponaded and slowing down, also noted with slight elevation of LFTs which we will continue m onitoring. #cholelithiasis -POD #5 s/p lap ramesh c/b by post op bleeding -close monitoring of bleeding control s/p 2 units of blood -BID CBCs for now -monitor LFTs, and will check lipase and amylase with next blood draw #Acute anemia: 2/2 to bleed - with associated hypotension, with CT showing a large right rectus sheath hematoma and a right subhepatic space hematoma with R hemoperitoneum - BID CBCs for now, next check at 6PM - hold warfarin for now, will likely resume tomorrow if hemoglobin stabilizes. No heparin bridging despite mechanical valves given the bleeding. Hypotension: Resolved -Was in the setting of post op abdominal bleeding -s/p 2L NS, now on maintenance -resume BP meds #AVR/MVR/afib - rate controlled, resume BB - discontinued heparin in the setting of postop and holding warfarin with plan to resume when H/H stabilizes, to a target INR of 2.5-3.5 #CAD/CABG - continue statin, no aspirin per cardiology #HTN - continue home meds #GERD - protonix #DVT prophylaxis - warfarin Dispo: Pending resolution of active bleeding, warfarin, target INR 2.5-3.5 VS,Fishbone, I+O VS, Fishbone, I+O Laboratory Tests 01/09/19 20:15 01/10/19 02:04 01/10/19 05:10 Red Blood Count 2.76 L, Mean Corpuscular Volume 86.6, Mean Corpuscular Hemoglobin 28.6, Mean Corpuscular Hemoglobin Concent 33.1, Red Cell Distribution Width 14.6 H, Calcium Level 8.1 L, Aspartate Amino Transf (AST/SGOT) 243 H, Alanine Aminotransferase (ALT/SGPT) 318 H, Alkaline Phosphatase 170 H, Total Bilirubin 1.2 H, Total Protein 5.6 L, Albumin 2.6 L 01/10/19 12:38 Vital Signs Date Time Temp Pulse Resp B/P (MAP) Pulse Ox O2 Delivery O2 Flow Rate FiO2 01/10/19 08:10 70 129/87 01/10/19 06:00 96.8 18 97 01/05/19 11:07 2 I&O- Last 24 Hours up to 6 AM 01/10/19 06:00 Intake Total 5637 ml Output Total 1600 ml Balance 4037 ml SHAE JOINER MD Jan 10, 2019 15:04
[2019-01-10 17:55] LABS: HEMATOCRIT 32.5 % (36.0-47.0); HEMOGLOBIN 10.7 g/dl (12.0-15.5)
[2019-01-10 18:19] LABS: AMYLASE 57 U/L (25-115); LIPASE 258 U/L (73-393)
[2019-01-10] MEDS: ATORVASTATIN 20 MG TAB PO SCH (20:33)
[2019-01-10] MEDS: MONTELUKAST 10 MG TAB PO SCH (20:33)
[2019-01-10] MEDS: LISINOPRIL 5 MG TAB PO SCH (20:34)
[2019-01-10 22:00] VITALS: BP 125/68
[2019-01-11 06:00] VITALS: BP 118/53
[2019-01-11] MEDS: SLF 3 ML SYR IV SCH ×3 (06:26→22:17)
[2019-01-11] MEDS: NS 1,000 ML IV SCH ×2 (06:26→16:16)
[2019-01-11 06:40] LABS: HEMOGLOBIN 10.1 g/dl (12.0-15.5); MEAN CORPUSCULAR HEMOGLOBIN 29.9 pg (27.0-33.0); MEAN CORPUSCULAR HGB CONC 33.7 g/dl (32.0-36.5); MEAN CORPUSCULAR VOLUME 88.8 fl (80.0-96.0); PLATELET COUNT, AUTOMATED 127 10^3/uL (150-450); RED BLOOD COUNT 3.38 10^6/uL (4.00-5.40); WHITE BLOOD COUNT 8.9 10^3/uL (4.0-10.0)
[2019-01-11 06:51] LABS: INR 1.75; PROTHROMBIN TIME 20.2 SECONDS (11.8-14.0)
[2019-01-11 07:09] LABS: ALBUMIN 2.6 GM/DL (3.2-5.2); ALT/SGPT 221 U/L (12-78); BLOOD UREA NITROGEN 10 MG/DL (7-18); CALCIUM LEVEL 8.3 MG/DL (8.8-10.2); CARBON DIOXIDE LEVEL 27 MEQ/L (21-32); CHLORIDE LEVEL 109 MEQ/L (98-107); CREATININE FOR GFR 0.77 MG/DL (0.55-1.30); GLOMERULAR FILTRATION RATE > 60.0 (>45); GLUCOSE, FASTING 98 MG/DL (70-100); POTASSIUM SERUM 3.8 MEQ/L (3.5-5.1); SODIUM LEVEL 141 MEQ/L (136-145); TOTAL PROTEIN 5.8 GM/DL (6.4-8.2)
[2019-01-11] MEDS: CARVedilol 3.125 MG TAB PO SCH ×2 (08:23→22:17)
[2019-01-11] MEDS: SPIRONOLACTONE 25 MG TAB PO SCH (08:23)
[2019-01-11] MEDS: POTASSIUM CHLORIDE 10 MEQ SR TABLET PO SCH (08:23)
[2019-01-11] MEDS: FUROSEMIDE 40 MG TAB PO SCH (08:24)
[2019-01-11] MEDS: FOLIC ACID 1 MG TAB PO SCH (08:24)
[2019-01-11 09:00] VITALS: BP 129/57
[2019-01-11 14:00] VITALS: BP 127/57
[2019-01-11 22:00] VITALS: BP 122/57
[2019-01-11] MEDS: MONTELUKAST 10 MG TAB PO SCH (22:16)
[2019-01-11] MEDS: ATORVASTATIN 20 MG TAB PO SCH (22:16)
[2019-01-11] MEDS: LISINOPRIL 5 MG TAB PO SCH (22:16)
--- NOTE | 2019-01-11 23:13 | IPNPDOC ---
Text Note Date of Service The patient was seen on 01/11/19. NOTE Subjective: Sitting up visiting with the hospital manager willow. No complaints this morning. Reports that she feels well. ROS: Pertinent negatives: No fever, chills, rigors, dizziness, palpitations, chest pain, back pain, worsening abdominal pain Pertinent positives: pain at the site of instrumentation 12 point ROS is otherwise negative except for the above mentioned. Objective: VITALS: as stated below GENERAL APPEARANCE: Pleasant, conversational, NAD, sitting up comfortably in bed HEENT: NC/AT, dentures in place, MMM CARDIOVASCULAR: systolic click, RRR, systolic murmur LUNGS: CTAB ABDOMEN: +BS, mild distention, no noted purpura or ecchymoses, soft, tender at surgical sites and otherwise mild in all other regions. EXTREMITIES: WWP, no edema NEUROLOGICAL: no gross focal deficits PSYCHIATRIC: AAOx3 IMAGING: non con CT A/P: 01/09/2019: 1. Large 19 x 8.3 x 3.5 cm right rectus sheath hematoma. 2. Postoperative changes in the right anterolateral and superior abdominal wall. 3. 5.6 cm hematoma in the right subhepatic space. 4. Small right hemoperitoneum. 5. Fullness in the pancreatic head question postoperative changes, new from October 20, 2018.6. 9 mm pulmonary nodule in the right base. ASSESSMENT: 68 yo woman with extensive cardiac history admitted for malik-op monitoring s/p cholecystectomy now c/b post-op bleeding with a CT showing a large right rectus sheath hematoma and right subhepatic space hematoma with associated anemia s/p 2 units of blood, otherwise hemodynamically stable with ongoing monitoring for continued bleeding though likely tamponaded and slowing down, also noted with slight elevation of LFTs which we will continue monitoring. #cholelithiasis -POD #6 s/p lap ramesh c/b by post op bleeding -close monitoring of bleeding control s/p 2 units of blood -monitor CBC after restarting warfarin -monitor LFTs #Acute anemia: 2/2 to bleed - with associated hypotension, with CT showing a large right rectus sheath hematoma and a right subhepatic space hematoma with R hemoperitoneum - Monitor CBC as we restart anticoagulation Hypotension: Resolved -Was in the setting of post op abdominal bleeding -s/p 2L NS, now on maintenance -resume BP meds #AVR/MVR/afib - rate controlled, resume BB - discontinued heparin in the setting of postop bleeding and now restarting warfarin with a target INR of 2.5-3.5 #CAD/CABG - continue statin, no aspirin per cardiology #HTN - continue home meds #GERD - protonix #DVT prophylaxis - warfarin Dispo: Pending resolution of active bleeding VS,Fishbone, I+O VS, Fishbone, I+O Laboratory Tests 01/11/19 05:56 Red Blood Count 3.38 L, Mean Corpuscular Volume 88.8, Mean Corpuscular Hemoglobin 29.9, Mean Corpuscular Hemoglobin Concent 33.7, Red Cell Distribution Width 14.9 H, Calcium Level 8.3 L, Aspartate Amino Transf (AST/SGOT) 107 H, Alanine Aminotransferase (ALT/SGPT) 221 H, Alkaline Phosphatase 183 H, Total Bilirubin 2.0 #H, Direct Bilirubin 1.0 H, Total Protein 5.8 L, Albumin 2.6 L Vital Signs Date Time Temp Pulse Resp B/P (MAP) Pulse Ox O2 Delivery O2 Flow Rate FiO2 01/11/19 22:17 72 122/57 01/11/19 22:00 98.3 18 98 01/05/19 11:07 2 I&O- Last 24 Hours up to 6 AM 01/11/19 06:00 Intake Total 2796 ml Output Total 1500 ml Balance 1296 ml SHAE JOINER MD Jan 11, 2019 23:13
[2019-01-12] MEDS: NS 1,000 ML IV SCH (02:27)
[2019-01-12] MEDS: SLF 3 ML SYR IV SCH ×3 (04:35→22:05)
[2019-01-12 06:00] VITALS: BP 110/58
[2019-01-12 06:57] LABS: HEMATOCRIT 28.4 % (36.0-47.0); HEMOGLOBIN 9.6 g/dl (12.0-15.5); MEAN CORPUSCULAR HEMOGLOBIN 30.1 pg (27.0-33.0); MEAN CORPUSCULAR HGB CONC 33.8 g/dl (32.0-36.5); PLATELET COUNT, AUTOMATED 131 10^3/uL (150-450); RED BLOOD COUNT 3.19 10^6/uL (4.00-5.40)
[2019-01-12 07:03] LABS: INR 1.54; PROTHROMBIN TIME 18.2 SECONDS (11.8-14.0)
[2019-01-12 07:19] LABS: ALBUMIN 2.4 GM/DL (3.2-5.2); ALT/SGPT 153 U/L (12-78); BILIRUBIN,TOTAL 1.9 MG/DL (0.2-1.0); BLOOD UREA NITROGEN 7 MG/DL (7-18); CALCIUM LEVEL 8.1 MG/DL (8.8-10.2); CARBON DIOXIDE LEVEL 24 MEQ/L (21-32); CHLORIDE LEVEL 110 MEQ/L (98-107); CREATININE FOR GFR 0.62 MG/DL (0.55-1.30); GLOMERULAR FILTRATION RATE > 60.0 (>45); GLUCOSE, FASTING 101 MG/DL (70-100); POTASSIUM SERUM 3.5 MEQ/L (3.5-5.1); SODIUM LEVEL 142 MEQ/L (136-145); TOTAL PROTEIN 5.5 GM/DL (6.4-8.2)
[2019-01-12] MEDS: FUROSEMIDE 40 MG TAB PO SCH (08:56)
[2019-01-12] MEDS: SPIRONOLACTONE 25 MG TAB PO SCH (08:56)
[2019-01-12] MEDS: POTASSIUM CHLORIDE 10 MEQ SR TABLET PO SCH (08:56)
[2019-01-12] MEDS: FOLIC ACID 1 MG TAB PO SCH (08:57)
[2019-01-12] MEDS: CARVedilol 3.125 MG TAB PO SCH ×2 (08:57→20:29)
--- NOTE | 2019-01-12 12:52 | IPNPDOC ---
Subjective General Date/Time Seen The patient was seen on 01/12/19 at 12:47. Subject Chief Complaint/History The patient is a 68-year-old female admitted with a reason for visit of Cholecystectomy Planned. Patient denies any abdominal discomfort. She is tolerating regular food. She denies any nausea. Abdominal fullness improving. Current Medications Current Medications Current Medications Medications (Trade) Dose Ordered Sig/Nam Route PRN Reason Start Time Stop Time Status Last Admin Dose Admin Acetaminophen (Tylenol Tab) 1,000 mg Q6H PRN PO PAIN 01/02/19 12:15 01/10/19 08:26 Atorvastatin Calcium (Lipitor) 20 mg QPM PO 01/02/19 21:00 01/11/19 22:16 Carvedilol (COReg) 3.125 mg BID PO 01/02/19 21:00 01/12/19 08:57 Fentanyl Citrate (Sublimaze) 25 mcg Q5MP PRN IV MODERATE PAIN (PS 4-7) 01/05/19 10:30 01/05/19 11:30 DC Folic Acid (Folic Acid) 1 mg DAILY PO 01/03/19 09:00 01/12/19 08:57 Furosemide (Lasix) 40 mg DAILY PO 01/03/19 09:00 01/12/19 08:56 Heparin Sodium (Porcine) (Heparin) ASDIRECTED PRN IV SEE LABEL COMMENTS 01/02/19 12:15 01/05/19 10:14 DC 01/03/19 14:30 Heparin Sodium (Porcine) (Heparin) ASDIRECTED PRN IV SEE LABEL COMMENTS 01/06/19 07:45 01/09/19 10:30 DC 01/08/19 12:15 Heparin Sodium (Porcine) 42662 units/IV Miscellaneous Supplies 250 ml @ 0 mls/hr Q0M IV 01/02/19 12:13 01/05/19 10:12 DC 01/04/19 01:04 Heparin Sodium (Porcine) 00670 units/IV Miscellaneous Supplies 250 ml @ 0 mls/hr Q0M IV 01/06/19 07:34 01/09/19 10:30 DC 01/09/19 04:25 Home Med (Med Rec Complete!) ASDIRECTED XX 01/02/19 09:30 01/02/19 09:30 DC Lactated Ringer's 1,000 ml @ 100 mls/hr Q10H IV 01/05/19 10:30 01/05/19 11:30 DC Lisinopril (Prinivil) 5 mg QPM PO 01/02/19 21:00 01/11/19 22:16 Montelukast Sodium (Singulair) 10 mg QPM PO 01/02/19 21:00 01/11/19 22:16 Non-Formulary Medication (Heparin Iv Rate Change Documentation ml/ Hr) ASDIRECTED XX 01/02/19 12:15 01/05/19 10:14 DC 01/03/19 14:31 Non-Formulary Medication (Heparin Iv Rate Change Documentation ml/ Hr) ASDIRECTED XX 01/06/19 07:45 01/09/19 10:31 DC 01/08/19 18:38 Ondansetron HCl (ZOFRAN INJection) 4 mg Q4HP PRN IV NAUSEA OR VOMITING 01/05/19 10:30 01/05/19 11:30 DC Oxycodone HCl (Roxicodone, Oxyir) 5 mg ASDIRECTED PRN PO MILD/MODERATE PAIN (PS 1-7) 01/05/19 10:30 01/05/19 11:30 DC Potassium Chloride (Micro-K Extencaps) 10 meq DAILY PO 01/03/19 09:00 01/12/19 08:56 Senna (Senokot) 1 tab DAILYPRN PRN PO CONSTIPATION 01/09/19 10:30 01/09/19 16:55 Sodium Chloride 1,000 ml @ 100 mls/hr Q10H IV 01/09/19 10:45 01/12/19 11:02 DC 01/12/19 02:27 Sodium Chloride (Saline Lock Flush) 2 ml ASDIRECTED PRN IV SEE LABEL COMMENTS 01/03/19 09:00 Sodium Chloride (Saline Lock Flush) 2 ml SLF IV 01/03/19 14:00 01/12/19 04:35 Spironolactone (Aldactone) 25 mg DAILY PO 01/03/19 09:00 01/12/19 08:56 Warfarin Sodium (Coumadin) 2 mg DAILY@17 PO 01/12/19 17:00 Warfarin Sodium (Coumadin) 5 mg DAILY@17 PO 01/06/19 17:00 01/09/19 12:19 DC 01/08/19 18:39 Allergies Coded Allergies: simvastatin (Verified Allergy, Mild, RASH, 01/02/19) Objective Physical Examination Examination GENERAL APPEARANCE: Comfortable. ABDOMEN: Right-sided abdominal fullness from the rectus sheath hematoma i mproving. No skin breakdown. No warmth. Nontender in the right upper quadrant area. Vital Signs Vital Signs Date Time Temp Pulse Resp B/P (MAP) Pulse Ox O2 Delivery O2 Flow Rate FiO2 01/12/19 08:57 72 118/59 01/12/19 06:00 97.5 17 96 I&Os I&O- Last 24 Hours up to 6 AM 01/12/19 06:00 Intake Total 1510 ml Output Total 2000 ml Balance -490 ml Laboratory Data Labs 24H Laboratory Tests 2 01/12/19 06:22: Nucleated Red Blood Cells % (auto) 0.0, Prothrombin Time 18.2H, Prothromb Time International Ratio 1.54, Anion Gap 8, Glomerular Filtration Rate > 60.0, Blood Urea Nitrogen 7, Creatinine 0.62, Sodium Level 142, Potassium Level 3.5, Chloride Level 110H, Carbon Dioxide Level 24, Calcium Level 8.1L, Aspartate Amino Transf (AST/SGOT) 72H, Alanine Aminotransferase (ALT/SGPT) 153H, Alkaline Phosphatase 188H, Total Bilirubin 1.9H, Total Protein 5.5L, Albumin 2.4L, Albumin/Globulin Ratio 0.77L CBC/BMP Laboratory Tests 01/12/19 06:22 Red Blood Count 3.19 L, Mean Corpuscular Volume 89.0, Mean Corpuscular Hemoglobin 30.1, Mean Corpuscular Hemoglobin Concent 33.8, Red Cell Distribution Width 15.3 H, Calcium Level 8.1 L, Aspartate Amino Transf (AST/SGOT) 72 H, Alanine Aminotransferase (ALT/SGPT) 153 H, Alkaline Phosphatase 188 H, Total Bilirubin 1.9 H, Total Protein 5.5 L, Albumin 2.4 L Microbiology Microbiology 01/04/19 Stool Occult Blood (JOSIE) - Final, Complete Impression POD7 Laparoscopic Cholecystectomy mechanical heart valve in need of anticoagulation rectus sheath hematoma and small subcapsular liver hematoma from anticoagulation abnormal LFTs improving She looks comfortable and not complaining of abdominal discomfort. No worsening of the rectus sheath hematoma clinically or the overlying skin. Her hgb and hct has been fairly stable and she is starting coumadin again tonight. I think she might have dropped some stones in the biliary tree during the surgery to account for the increase in LFTs but this is improving and she is not having any abdominal discomfort. She did have some fullness in the pancreas on CT. Her lipase is normal. Other differentials is that this is part of the hematoma getting reabsorbed. Nonetheless, she is not complaining of any pain. Can d/c home per medicine once determined hgb and hct stable on anticoagulation. Plan / VTE VTE Prophylaxis Ordered?: No VTE Exclusion Mechanical Proph: Other (on anticoagulation) VTE Exclusion Pharmacological: Bleeding Risk CASEY OCHOA MD Jan 12, 2019 12:52
--- NOTE | 2019-01-12 17:08 | IPNPDOC ---
Text Note Date of Service The patient was seen on 01/12/19. NOTE Subjective: Today is Mrs. Neri's 50 wedding anniversary!! She was pleasantly taking a walk down the hallway with her and reported feeling very well today. No abdominal pain unless she touches the surgical site, has been eating and drinking well. ROS: Pertinent negatives: No fever, chills, rigors, dizziness, palpitations, chest pain, back pain, worsening abdominal pain Pertinent positives: pain at the site of instrumentation 12 point ROS is otherwise negative except for the above mentioned. Objective: VITALS: as stated below GENERAL APPEARANCE: Pleasant, conversational, NAD HEENT: NC/AT, MMM CARDIOVASCULAR: systolic click, RRR, systolic murmur LUNGS: CTAB ABDOMEN: Normoactive bowel sounds, soft, tender at surgical site and otherwise no tenderness in other regions. EXTREMITIES: WWP, no edema NEUROLOGICAL: no gross focal deficits, normal gait PSYCHIATRIC: AAOx3 IMAGING:Reviewed. No new imaging in the last 24 hours ASSESSMENT: 68 yo woman with extensive cardiac history admitted for malik-op monitoring s/p cholecystectomy c/b post-op bleeding with a large right rectus sheath hematoma and right subhepatic space hematoma with associated anemia s/p 2 units of blood, now hemodynamically stable with ongoing monitoring for bleeding while she restarts her anticoagulation with warfarin without a heparin bridge. #cholelithiasis -POD #7 s/p lap ramesh c/b by post op bleeding -Daily CBC for monitoring of bleeding s/p 2 units of blood -Restarting warfarin at 2mg #Acute anemia: 2/2 to bleed - with associated hypotension, with CT showing a large right rectus sheath hematoma and a right subhepatic space hematoma with R hemoperitoneum - Monitor CBC daily as we restart anticoagulation Hypotension: Resolved -Was in the setting of post op abdominal bleeding -s/p 2L NS -resumed BP meds #AVR/MVR/afib - rate controlled, resume BB - discontinued heparin in the setting of postop bleeding and now restarting warfarin with a target INR of 2.5-3.5 #CAD/CABG - continue statin, no aspirin per cardiology #HTN - continue home meds #GERD - protonix #DVT prophylaxis - warfarin Dispo: Pending target INR of 2.5-3.5 without bleeding VS,Fishbone, I+O VS, Fishbone, I+O Laboratory Tests 01/12/19 06:22 Red Blood Count 3.19 L, Mean Corpuscular Volume 89.0, Mean Corpuscular Hemoglobin 30.1, Mean Corpuscular Hemoglobin Concent 33.8, Red Cell Distribution Width 15.3 H, Calcium Level 8.1 L, Aspartate Amino Transf (AST/SGOT) 72 H, Alanine Aminotransferase (ALT/SGPT) 153 H, Alkaline Phosphatase 188 H, Total Juan Pablo irubin 1.9 H, Total Protein 5.5 L, Albumin 2.4 L Vital Signs Date Time Temp Pulse Resp B/P (MAP) Pulse Ox O2 Delivery O2 Flow Rate FiO2 01/12/19 08:57 72 118/59 01/12/19 06:00 97.5 17 96 I&O- Last 24 Hours up to 6 AM 01/12/19 06:00 Intake Total 1510 ml Output Total 2000 ml Balance -490 ml SHAE JOINER MD Jan 12, 2019 17:08
[2019-01-12] MEDS: WARFARIN SOD 2 MG TAB PO SCH (17:12)
[2019-01-12 20:00] VITALS: BP 127/58
[2019-01-12] MEDS: ATORVASTATIN 20 MG TAB PO SCH (20:29)
[2019-01-12] MEDS: LISINOPRIL 5 MG TAB PO SCH (20:30)
[2019-01-12] MEDS: MONTELUKAST 10 MG TAB PO SCH (20:30)
[2019-01-13] MEDS: ACETAMINOPHEN 500 MG TAB PO PRN (03:20)
[2019-01-13 06:00] VITALS: BP 105/58
[2019-01-13 06:26] LABS: HEMATOCRIT 28.8 % (36.0-47.0); HEMOGLOBIN 9.7 g/dl (12.0-15.5); MEAN CORPUSCULAR HEMOGLOBIN 29.3 pg (27.0-33.0); MEAN CORPUSCULAR HGB CONC 33.7 g/dl (32.0-36.5); PLATELET COUNT, AUTOMATED 159 10^3/uL (150-450); RED BLOOD COUNT 3.31 10^6/uL (4.00-5.40); WHITE BLOOD COUNT 8.5 10^3/uL (4.0-10.0)
[2019-01-13] MEDS: SLF 3 ML SYR IV SCH ×3 (06:26→21:31)
[2019-01-13 06:47] LABS: BLOOD UREA NITROGEN 9 MG/DL (7-18); CALCIUM LEVEL 8.6 MG/DL (8.8-10.2); CARBON DIOXIDE LEVEL 25 MEQ/L (21-32); CHLORIDE LEVEL 109 MEQ/L (98-107); CREATININE FOR GFR 0.77 MG/DL (0.55-1.30); GLOMERULAR FILTRATION RATE > 60.0 (>45); GLUCOSE, FASTING 101 MG/DL (70-100); POTASSIUM SERUM 3.5 MEQ/L (3.5-5.1); SODIUM LEVEL 141 MEQ/L (136-145)
[2019-01-13 06:49] LABS: INR 1.53; PROTHROMBIN TIME 18.1 SECONDS (11.8-14.0)
[2019-01-13] MEDS: SPIRONOLACTONE 25 MG TAB PO SCH (10:21)
[2019-01-13] MEDS: POTASSIUM CHLORIDE 10 MEQ SR TABLET PO SCH (10:22)
[2019-01-13] MEDS: FOLIC ACID 1 MG TAB PO SCH (10:22)
[2019-01-13] MEDS: FUROSEMIDE 40 MG TAB PO SCH (10:22)
[2019-01-13] MEDS: CARVedilol 3.125 MG TAB PO SCH ×2 (10:24→21:31)
[2019-01-13 14:00] VITALS: BP 98/50
[2019-01-13] MEDS: WARFARIN SOD 2 MG TAB PO SCH (17:25)
[2019-01-13 20:00] VITALS: BP 113/58
--- NOTE | 2019-01-13 20:00 | IPNPDOC ---
Text Note Date of Service The patient was seen on 01/13/19. NOTE Subjective: Doing well, feels great, was walking around the unit with her . ROS: 12 point ROS was reviewed and normal Objective: VITALS: as stated below GENERAL APPEARANCE: Pleasant, conversational, NAD HEENT: NC/AT, MMM CARDIOVASCULAR: systolic click, RRR, systolic murmur LUNGS: CTAB ABDOMEN: Normoactive bowel sounds, soft, mild discomfort at surgical site on deep palpation EXTREMITIES: WWP, no edema NEUROLOGICAL: no gross focal deficits, normal gait PSYCHIATRIC: AAOx3 IMAGING:Reviewed. No new imaging in the last 24 hours ASSESSMENT: 68 yo woman with extensive cardiac history admitted for malik-op monitoring s/p cholecystectomy c/b post-op bleeding with a large right rectus sheath hematoma and right subhepatic space hematoma with associated anemia s/p 2 units of blood, now hemodynamically stable with ongoing monitoring for bleeding while she restarts her anticoagulation with warfarin to a target INR of 2.5-3.5. #cholelithiasis -s/p lap ramesh c/b by post op bleeding -Daily CBC for monitoring of bleeding -s/p 2 units of blood -continue warfarin at 2mg #Acute anemia: 2/2 to bleed - with associated hypotension, with CT showing a large right rectus sheath hematoma and a right subhepatic space hematoma with R hemoperitoneum - Monitor CBC daily as we restart anticoagulation Hypotension: Resolved -Was in the setting of post op abdominal bleeding -s/p 2L NS -continue BP meds #AVR/MVR/afib - rate controlled, resume BB - discontinued heparin in the setting of postop bleeding and now on warfarin with a target INR of 2.5-3.5 #CAD/CABG - continue statin, no aspirin per cardiology #HTN - continue home meds #GERD - protonix #DVT prophylaxis - warfarin Dispo: Pending target INR of 2.5-3.5 without bleeding VS,Fishbone, I+O VS, Fishbone, I+O Laboratory Tests 01/13/19 05:56 Red Blood Count 3.31 L, Mean Corpuscular Volume 87.0, Mean Corpuscular Hemoglobin 29.3, Mean Corpuscular Hemoglobin Concent 33.7, Red Cell Distribution Width 15.9 H, Calcium Level 8.6 L Vital Signs Date Time Temp Pulse Resp B/P (MAP) Pulse Ox O2 Delivery O2 Flow Rate FiO2 01/13/19 14:00 96.9 70 17 98/50 (91) 96 I&O- Last 24 Hours up to 6 AM 01/13/19 06:00 Intake Total 1490 ml Output Total 1000 ml Balance 490 ml SHAE JOINER MD Jan 13, 2019 20:00
[2019-01-13] MEDS: LISINOPRIL 5 MG TAB PO SCH (21:31)
[2019-01-13] MEDS: MONTELUKAST 10 MG TAB PO SCH (21:31)
[2019-01-13] MEDS: ATORVASTATIN 20 MG TAB PO SCH (21:31)
[2019-01-14] MEDS: SLF 3 ML SYR IV SCH ×3 (05:42→21:00)
[2019-01-14 06:32] LABS: HEMATOCRIT 28.3 % (36.0-47.0); HEMOGLOBIN 9.4 g/dl (12.0-15.5); MEAN CORPUSCULAR HEMOGLOBIN 28.7 pg (27.0-33.0); MEAN CORPUSCULAR HGB CONC 33.2 g/dl (32.0-36.5); MEAN CORPUSCULAR VOLUME 86.3 fl (80.0-96.0); PLATELET COUNT, AUTOMATED 171 10^3/uL (150-450); RED BLOOD COUNT 3.28 10^6/uL (4.00-5.40); WHITE BLOOD COUNT 8.2 10^3/uL (4.0-10.0)
[2019-01-14 06:55] LABS: BLOOD UREA NITROGEN 8 MG/DL (7-18); CALCIUM LEVEL 8.3 MG/DL (8.8-10.2); CARBON DIOXIDE LEVEL 26 MEQ/L (21-32); CHLORIDE LEVEL 103 MEQ/L (98-107); CREATININE FOR GFR 0.71 MG/DL (0.55-1.30); GLOMERULAR FILTRATION RATE > 60.0 (>45); GLUCOSE, FASTING 93 MG/DL (70-100); POTASSIUM SERUM 3.3 MEQ/L (3.5-5.1); SODIUM LEVEL 137 MEQ/L (136-145)
[2019-01-14] MEDS: POTASSIUM CHLORIDE 10 MEQ SR TABLET PO SCH (08:28)
[2019-01-14] MEDS: SPIRONOLACTONE 25 MG TAB PO SCH (08:29)
[2019-01-14] MEDS: FUROSEMIDE 40 MG TAB PO SCH (08:29)
[2019-01-14] MEDS: CARVedilol 3.125 MG TAB PO SCH ×2 (08:29→20:59)
[2019-01-14] MEDS: FOLIC ACID 1 MG TAB PO SCH (08:29)
[2019-01-14 09:11] LABS: MAGNESIUM LEVEL 1.1 MG/DL (1.8-2.4)
[2019-01-14 09:28] LABS: INR 1.47; PROTHROMBIN TIME 17.6 SECONDS (11.8-14.0)
[2019-01-14] MEDS ORDERED: POTASSIUM CHLORIDE 10 MEQ SR TABLET PO ONE (10:00)
[2019-01-14 14:00] VITALS: BP 107/58
[2019-01-14] MEDS ORDERED: WARFARIN SOD 5 MG TAB PO SCH (17:00)
[2019-01-14] MEDS ORDERED: WARFARIN SOD 5 MG TAB PO ONE (17:00)
[2019-01-14] MEDS: LISINOPRIL 5 MG TAB PO SCH (20:58)
--- NOTE | 2019-01-14 20:58 | IPNPDOC ---
Text Note Date of Service The patient was seen on 01/14/19. NOTE Subjective: Doing well, feels great, anxious to go home ROS: 12 point ROS was reviewed and normal Objective: VITALS: as stated below GENERAL APPEARANCE: Pleasant, conversational, NAD HEENT: NC/AT, MMM CARDIOVASCULAR: systolic click, RRR, systolic murmur LUNGS: CTAB ABDOMEN: Normoactive bowel sounds, soft, mild discomfort at surgical site on deep palpation EXTREMITIES: WWP, no edema NEUROLOGICAL: no gross focal deficits, normal gait PSYCHIATRIC: AAOx3 IMAGING:Reviewed. No new imaging in the last 24 hours ASSESSMENT: 68 yo woman with extensive cardiac history admitted for malik-op monitoring s/p cholecystectomy c/b post-op bleeding with a large right rectus sheath hematoma and right subhepatic space hematoma with associated anemia s/p 2 units of blood, now hemodynamically stable with ongoing monitoring for bleeding while she restarts her anticoagulation with warfarin to a target INR of 2.5-3.5. #cholelithiasis -s/p lap ramesh c/b by post op bleeding -Daily CBC for monitoring of bleeding -s/p 2 units of blood -give warfarin 5mg tonight once because her INR is barely changing with 2mg daily #Acute anemia: 2/2 to bleed - with associated hypotension, with CT showing a large right rectus sheath hematoma and a right subhepatic space hematoma with R hemoperitoneum - Monitor CBC daily as we restart anticoagulation Hypotension: Resolved -Was in the setting of post op abdominal bleeding -s/p 2L NS -continue BP meds #AVR/MVR/afib - rate controlled, resume BB - discontinued heparin in the setting of postop bleeding and now on warfarin with a target INR of 2.5-3.5 #CAD/CABG - continue statin, no aspirin per cardiology #HTN - continue home meds #GERD - protonix #DVT prophylaxis - warfarin Dispo: Pending target INR of 2.5-3.5 without bleeding VS,Fishbone, I+O VS, Fishbone, I+O Laboratory Tests 01/14/19 06:06 Red Blood Count 3.28 L, Mean Corpuscular Volume 86.3, Mean Corpuscular Hemoglobin 28.7, Mean Corpuscular Hemoglobin Concent 33.2, Red Cell Distribution Width 15.6 H, Calcium Level 8.3 L Vital Signs Date Time Temp Pulse Resp B/P (MAP) Pulse Ox O2 Delivery O2 Flow Rate FiO2 01/14/19 14:00 97.5 70 18 107/58 (33) 96 I&O- Last 24 Hours up to 6 AM0 01/14/19 05:59 Intake Total 2360 ml Output Total 2200 ml Balance 160 ml SHAE JOINER MD Jan 14, 2019 20:58
[2019-01-14] MEDS: MONTELUKAST 10 MG TAB PO SCH (20:59)
[2019-01-14] MEDS: ATORVASTATIN 20 MG TAB PO SCH (20:59)
[2019-01-14 22:00] VITALS: BP 122/59
[2019-01-15] MEDS: SLF 3 ML SYR IV SCH ×3 (05:28→20:13)
[2019-01-15 06:00] VITALS: BP 119/58
[2019-01-15 06:20] LABS: HEMATOCRIT 27.2 % (36.0-47.0); HEMOGLOBIN 9.1 g/dl (12.0-15.5); MEAN CORPUSCULAR HEMOGLOBIN 29.2 pg (27.0-33.0); MEAN CORPUSCULAR HGB CONC 33.5 g/dl (32.0-36.5); MEAN CORPUSCULAR VOLUME 87.2 fl (80.0-96.0); PLATELET COUNT, AUTOMATED 195 10^3/uL (150-450); RED BLOOD COUNT 3.12 10^6/uL (4.00-5.40); WHITE BLOOD COUNT 7.7 10^3/uL (4.0-10.0)
[2019-01-15 06:28] LABS: INR 1.7; PROTHROMBIN TIME 19.7 SECONDS (11.8-14.0)
[2019-01-15 06:45] LABS: BLOOD UREA NITROGEN 8 MG/DL (7-18); CALCIUM LEVEL 8.5 MG/DL (8.8-10.2); CARBON DIOXIDE LEVEL 26 MEQ/L (21-32); CHLORIDE LEVEL 106 MEQ/L (98-107); CREATININE FOR GFR 0.63 MG/DL (0.55-1.30); GLOMERULAR FILTRATION RATE > 60.0 (>45); GLUCOSE, FASTING 95 MG/DL (70-100); POTASSIUM SERUM 3.8 MEQ/L (3.5-5.1); SODIUM LEVEL 139 MEQ/L (136-145)
[2019-01-15] MEDS: FOLIC ACID 1 MG TAB PO SCH (08:08)
[2019-01-15] MEDS: SPIRONOLACTONE 25 MG TAB PO SCH (08:08)
[2019-01-15] MEDS: CARVedilol 3.125 MG TAB PO SCH ×2 (08:08→20:13)
[2019-01-15] MEDS: POTASSIUM CHLORIDE 10 MEQ SR TABLET PO SCH (08:09)
[2019-01-15] MEDS: FUROSEMIDE 40 MG TAB PO SCH (08:09)
[2019-01-15] MEDS: ACETAMINOPHEN 500 MG TAB PO PRN (09:49)
[2019-01-15 14:00] VITALS: BP 122/60
[2019-01-15 16:21] LABS: INR 1.86; PROTHROMBIN TIME 21.2 SECONDS (11.8-14.0)
[2019-01-15] MEDS: WARFARIN SOD 2 MG TAB PO SCH (17:11)
[2019-01-15] MEDS: ATORVASTATIN 20 MG TAB PO SCH (20:12)
[2019-01-15] MEDS: LISINOPRIL 5 MG TAB PO SCH (20:13)
[2019-01-15] MEDS: MONTELUKAST 10 MG TAB PO SCH (20:13)
--- NOTE | 2019-01-15 20:23 | IPNPDOC ---
Text Note Date of Service The patient was seen on 01/15/19. NOTE Subjective: Doing well, no complaints, visiting with her ROS: 12 point ROS was reviewed and normal Objective: VITALS: as stated below GENERAL APPEARANCE: Pleasant, conversational, NAD HEENT: NC/AT, MMM CARDIOVASCULAR: systolic click, RRR, systolic murmur LUNGS: CTAB ABDOMEN: Normoactive bowel sounds, soft, nontender EXTREMITIES: WWP, no edema NEUROLOGICAL: no gross focal deficits, normal gait PSYCHIATRIC: AAOx3 IMAGING:Reviewed. No new imaging in the last 24 hours ASSESSMENT: 68 yo woman with extensive cardiac history admitted for malik-op monitoring s/p cholecystectomy c/b post-op bleeding with a large right rectus sheath hematoma and right subhepatic space hematoma with associated anemia s/p 2 units of blood, now hemodynamically stable with ongoing monitoring for bleeding while she restarts her anticoagulation with warfarin to a target INR of 2.5-3.5. #cholelithiasis -s/p lap ramesh c/b by post op bleeding -Daily CBC for monitoring of bleeding -s/p 2 units of blood -give warfarin 5mg tonight again because her INR remains <2 with stable H/H #Acute anemia: 2/2 to bleed - with associated hypotension, with CT showing a large right rectus sheath hematoma and a right subhepatic space hematoma with R hemoperitoneum - Monitor CBC daily as we restart anticoagulation Hypotension: Resolved -Was in the setting of post op abdominal bleeding -s/p 2L NS -continue BP meds #AVR/MVR/afib - rate controlled, resume BB - discontinued heparin in the setting of postop bleeding and now on warfarin with a target INR of 2.5-3.5 #CAD/CABG - continue statin, no aspirin per cardiology #HTN - continue home meds #GERD - protonix #DVT prophylaxis - warfarin Dispo: Pending target INR of 2.5-3.5 without bleeding VS,Genebone, I+O VS, Fishbone, I+O Laboratory Tests 01/15/19 05:57 Red Blood Count 3.12 L, Mean Corpuscular Volume 87.2, Mean Corpuscular Hemoglobin 29.2, Mean Corpuscular Hemoglobin Concent 33.5, Red Cell Distribution Width 15.9 H, Calcium Level 8.5 L Vital Signs Date Time Temp Pulse Resp B/P (MAP) Pulse Ox O2 Delivery O2 Flow Rate FiO2 01/15/19 20:13 70 117/56 01/15/19 14:00 97.6 20 96 I&O- Last 24 Hours up to 6 AM 01/15/19 05:59 Intake Total 1570 ml Output Total 800 ml Balance 770 ml SHAE JOINER MD Jan 15, 2019 20:23
[2019-01-15] MEDS ORDERED: WARFARIN SOD 3 MG TAB PO ONE (21:00)
[2019-01-15 22:00] VITALS: BP 117/56
[2019-01-16] MEDS ORDERED: MAG SULF 1GM/100ML (MAG RUN) 1 GM in APPROPRIATE DILUENT 1 EA IV ONE (03:00)
[2019-01-16] MEDS: SLF 3 ML SYR IV SCH ×3 (03:09→20:02)
[2019-01-16 06:00] VITALS: BP 123/57
[2019-01-16 06:44] LABS: HEMATOCRIT 29.2 % (36.0-47.0); HEMOGLOBIN 9.4 g/dl (12.0-15.5); MEAN CORPUSCULAR HEMOGLOBIN 28.5 pg (27.0-33.0); MEAN CORPUSCULAR HGB CONC 32.2 g/dl (32.0-36.5); MEAN CORPUSCULAR VOLUME 88.5 fl (80.0-96.0); PLATELET COUNT, AUTOMATED 235 10^3/uL (150-450); WHITE BLOOD COUNT 7.7 10^3/uL (4.0-10.0)
[2019-01-16 06:52] LABS: INR 2.04; PROTHROMBIN TIME 22.8 SECONDS (11.8-14.0)
[2019-01-16 06:53] LABS: PARTIAL THROMBOPLASTIN TIME 45.3 SECONDS (25.0-38.4)
[2019-01-16 07:09] LABS: ALBUMIN 2.6 GM/DL (3.2-5.2); ALT/SGPT 122 U/L (12-78); BILIRUBIN,TOTAL 1.7 MG/DL (0.2-1.0); BLOOD UREA NITROGEN 9 MG/DL (7-18); CALCIUM LEVEL 8.7 MG/DL (8.8-10.2); CARBON DIOXIDE LEVEL 26 MEQ/L (21-32); CHLORIDE LEVEL 103 MEQ/L (98-107); GLOMERULAR FILTRATION RATE > 60.0 (>45); GLUCOSE, FASTING 93 MG/DL (70-100); POTASSIUM SERUM 3.9 MEQ/L (3.5-5.1); SODIUM LEVEL 138 MEQ/L (136-145); TOTAL PROTEIN 6.1 GM/DL (6.4-8.2)
[2019-01-16] MEDS: FOLIC ACID 1 MG TAB PO SCH (09:00)
[2019-01-16] MEDS: SPIRONOLACTONE 25 MG TAB PO SCH (09:00)
[2019-01-16] MEDS: POTASSIUM CHLORIDE 10 MEQ SR TABLET PO SCH (09:00)
[2019-01-16] MEDS: FUROSEMIDE 40 MG TAB PO SCH (09:00)
[2019-01-16] MEDS: CARVedilol 3.125 MG TAB PO SCH ×2 (09:03→20:02)
[2019-01-16 10:38] LABS: MAGNESIUM LEVEL 1.9 MG/DL (1.8-2.4)
[2019-01-16 14:00] VITALS: BP 120/52
[2019-01-16] MEDS: WARFARIN SOD 2 MG TAB PO SCH (17:48)
[2019-01-16] MEDS: ACETAMINOPHEN 500 MG TAB PO PRN (18:41)
[2019-01-16] MEDS: ATORVASTATIN 20 MG TAB PO SCH (20:02)
[2019-01-16] MEDS: LISINOPRIL 5 MG TAB PO SCH (20:02)
[2019-01-16] MEDS: MONTELUKAST 10 MG TAB PO SCH (20:02)
--- NOTE | 2019-01-16 21:24 | IPNPDOC ---
Date Seen The patient was seen on 01/16/19. Progress Note SUBJECTIVE: Patient denies any complaints today stating that she wants to go home. Has been just waiting on INR to become therapeutic >2.5. INR 2.04 today. OBJECTIVE PHYSICAL EXAMINATION: VITAL SIGNS: Please see below. General: No acute distress, Alert Eyes: Normal sclera, EOMI, OSCAR HENT: Atraumatic, neck supple, moist mucous membranes Cardiovascular: Normal rate, normal rhythm. No murmurs appreciated. Pulmonary: Clear to auscultation b/l, no wheezing GI: Soft, nontender, nondistended Skin: Warm and dry Neuro: CN grossly intact. No focal deficits. Strengths equal b/l. Psych: oriented x 3 LABORATORY DATA, IMAGING STUDIES, MICROBIOLOGY: Please see below. DVT prophylaxis ordered?: Warfarin ASSESSMENT AND PLAN: 1. Cholelithiasis - s/p lab ramesh complicated by post op bleeding. - Monitor for bleeds and daily CBC, has been stable. - s/p 2 units pRBC. 2. Acute anemia - 2/2 post op bleeding with associated hypotension with CT showing R. rectus sheath hematoma and R. subhepatic space hematoma with R. hemoperitoneum. - Monitor daily CBC. Anticoagulation resumed. 3. AVR/MVR/Afib - Rate controlled. c/w home meds. - AC was held during bleeding episode. Warfarin had been resumed for target INR 2.5-3.5. - Pending therapeutic INR for discharge. 4. CAD - s/p CABG - c/w home meds. 5. HTN - monitor bp. - continue home meds. Dispo: Pending target INR of 2.5-3.5 without bleeding VS, I&O, 24H, Fishbone Vital Signs/I&O Vital Signs Date Time Temp Pulse Resp B/P (MAP) Pulse Ox O2 Delivery O2 Flow Rate FiO2 01/16/19 20:02 72 120/62 01/16/19 14:00 97.0 18 100 I&O- Last 24 Hours up to 6 AM 01/16/19 05:59 Intake Total 1840 ml Output Total 150 ml Balance 1690 ml Laboratory Data 24H LABS Laboratory Tests 2 01/16/19 01:38: Magnesium Level 1.1L 01/16/19 05:59: Magnesium Level 1.9, Nucleated Red Blood Cells % (auto) 0.0, Prothrombin Time 22.8H, Prothromb Time International Ratio 2.04, Activated Partial Thromboplast Time 45.3H, Anion Gap 9, Glomerular Filtration Rate > 60.0, Blood Urea Nitrogen 9, Creatinine 0.70, Sodium Level 138, Potassium Level 3.9, Chloride Level 103, Carbon Dioxide Level 26, Calcium Level 8.7L, Phosphorus Level 3.0, Aspartate Amino Transf (AST/SGOT) 53H, Alanine Aminotransferase (ALT/SGPT) 122H, Alkaline Phosphatase 278H, Total Bilirubin 1.7H, Total Protein 6.1L, Albumin 2.6L, Albumin/Globulin Ratio 0.74L 01/16/19 20:16: Uric Acid 6.8H CBC/BMP Laboratory Tests 01/16/19 05:59 Red Blood Count 3.30 L, Mean Corpuscular Volume 88.5, Mean Corpuscular Hemoglobin 28.5, Mean Corpuscular Hemoglobin Concent 32.2, Red Cell Distribution Width 15.8 H, Calcium Level 8.7 L, Phosphorus Level 3.0, Aspartate Amino Transf (AST/SGOT) 53 H, Alanine Aminotransferase (ALT/SGPT) 122 H, Alkaline Phosphatase 278 H, Total Bilirubin 1.7 H, Total Protein 6.1 L, Albumin 2.6 L LAURIE CRUZ MD Jan 16, 2019 21:24
[2019-01-16] MEDS ORDERED: WARFARIN SOD 2 MG TAB PO ONE (21:30)
[2019-01-16 22:00] VITALS: BP 120/62
[2019-01-16] MEDS ORDERED: COLCHICINE 0.6 MG TAB PO ONE (22:15)
[2019-01-17] MEDS: SLF 3 ML SYR IV SCH ×3 (05:38→21:18)
[2019-01-17 06:00] VITALS: BP 119/63
[2019-01-17 06:32] LABS: HEMATOCRIT 28.9 % (36.0-47.0); HEMOGLOBIN 9.5 g/dl (12.0-15.5); MEAN CORPUSCULAR HGB CONC 32.9 g/dl (32.0-36.5); MEAN CORPUSCULAR VOLUME 88.1 fl (80.0-96.0); PLATELET COUNT, AUTOMATED 240 10^3/uL (150-450); RED BLOOD COUNT 3.28 10^6/uL (4.00-5.40); WHITE BLOOD COUNT 7.3 10^3/uL (4.0-10.0)
[2019-01-17 06:42] LABS: INR 2.4
[2019-01-17 06:56] LABS: BLOOD UREA NITROGEN 9 MG/DL (7-18); CARBON DIOXIDE LEVEL 27 MEQ/L (21-32); CHLORIDE LEVEL 106 MEQ/L (98-107); CREATININE FOR GFR 0.76 MG/DL (0.55-1.30); GLOMERULAR FILTRATION RATE > 60.0 (>45); GLUCOSE, FASTING 94 MG/DL (70-100); SODIUM LEVEL 140 MEQ/L (136-145)
[2019-01-17] MEDS: POTASSIUM CHLORIDE 10 MEQ SR TABLET PO SCH (08:31)
[2019-01-17] MEDS: CARVedilol 3.125 MG TAB PO SCH ×2 (08:31→21:17)
[2019-01-17] MEDS: SPIRONOLACTONE 25 MG TAB PO SCH (08:32)
[2019-01-17] MEDS: FUROSEMIDE 40 MG TAB PO SCH (08:32)
[2019-01-17] MEDS: FOLIC ACID 1 MG TAB PO SCH (08:32)
[2019-01-17 14:00] VITALS: BP 114/63
[2019-01-17] MEDS: WARFARIN SOD 2 MG TAB PO SCH (16:16)
[2019-01-17] MEDS ORDERED: ONDANSETRON 4 MG ORAL DISINTEGRATING TAB (Q0162 PER 1MG) SL SCH (18:00)
--- NOTE | 2019-01-17 19:09 | IPNPDOC ---
Date Seen The patient was seen on 01/17/19. Progress Note SUBJECTIVE: Patient reported no complaints again and wondering if she can go home soon. INR 2.4 today. OBJECTIVE PHYSICAL EXAMINATION: VITAL SIGNS: Please see below. General: No acute distress, Alert Eyes: Normal sclera, EOMI, OSCAR HENT: Atraumatic, neck supple, moist mucous membranes Cardiovascular: Normal rate, normal rhythm. No murmurs appreciated. Pulmonary: Clear to auscultation b/l, no wheezing GI: Soft, nontender, nondistended Skin: Warm and dry Neuro: CN grossly intact. No focal deficits. Strengths equal b/l. Psych: oriented x 3 LABORATORY DATA, IMAGING STUDIES, MICROBIOLOGY: Please see below. DVT prophylaxis ordered?: Warfarin ASSESSMENT AND PLAN: 1. Cholelithiasis - s/p lab ramesh complicated by post op bleeding. - Monitor for bleeds and daily CBC, has been stable. - s/p 2 units pRBC. 2. Acute anemia - 2/2 post op bleeding with associated hypotension with CT showing R. rectus sheath hematoma and R. subhepatic space hematoma with R. hemoperitoneum. - Monitor daily CBC. Anticoagulation resumed. 3. AVR/MVR/Afib - Rate controlled. c/w home meds. - AC was held during bleeding episode. Warfarin had been resumed for target INR 2.5-3.5. - Pending therapeutic INR for discharge. 4. CAD - s/p CABG - c/w home meds. 5. HTN - monitor bp. - continue home meds. Dispo: Pending target INR of 2.5-3.5 without bleeding, likely tomorrow. VS, I&O, 24H, [facility] Vital Signs/I&O Vital Signs Date Time Temp Pulse Resp B/P (MAP) Pulse Ox O2 Delivery O2 Flow Rate FiO2 01/17/19 14:00 97.5 70 18 114/63 (80) 96 I&O- Last 24 Hours up to 6 AM 01/17/19 06:00 Intake Total 1830 ml Output Total 575 ml Balance 1255 ml Laboratory Data 24H LABS Laboratory Tests 2 01/16/19 20:16: Uric Acid 6.8H 01/17/19 06:08: Nucleated Red Blood Cells % (auto) 0.0, Prothrombin Time 26.0H, Prothromb Time International Ratio 2.40, Anion Gap 7L, Glomerular Filtration Rate > 60.0, Blood Urea Nitrogen 9, Creatinine 0.76, Sodium Level 140, Potassium Level 4.0, Chloride Level 106, Carbon Dioxide Level 27, Calcium Level 9.0 CBC/BMP Laboratory Tests 01/17/19 06:08 Red Blood Count 3.28 L, Mean Corpuscular Volume 88.1, Mean Corpuscular Hemoglobin 29.0, Mean Corpuscular Hemoglobin Concent 32.9, Red Cell Distribution Width 15.7 H, Calcium Level 9.0 LAURIE CRUZ MD Jan 17, 2019 19:09
[2019-01-17] MEDS: MONTELUKAST 10 MG TAB PO SCH (21:15)
[2019-01-17] MEDS: LISINOPRIL 5 MG TAB PO SCH (21:18)
[2019-01-17] MEDS: ATORVASTATIN 20 MG TAB PO SCH (21:18)
[2019-01-17 22:00] VITALS: BP 112/62
[2019-01-18] MEDS: SLF 3 ML SYR IV SCH ×2 (05:07→14:00)
[2019-01-18 06:00] VITALS: BP 103/55
[2019-01-18 06:37] LABS: HEMATOCRIT 31.5 % (36.0-47.0); HEMOGLOBIN 10.2 g/dl (12.0-15.5); MEAN CORPUSCULAR HEMOGLOBIN 29.2 pg (27.0-33.0); MEAN CORPUSCULAR HGB CONC 32.4 g/dl (32.0-36.5); MEAN CORPUSCULAR VOLUME 90.3 fl (80.0-96.0); PLATELET COUNT, AUTOMATED 279 10^3/uL (150-450); RED BLOOD COUNT 3.49 10^6/uL (4.00-5.40); WHITE BLOOD COUNT 9.1 10^3/uL (4.0-10.0)
[2019-01-18 06:48] LABS: INR 2.84; PROTHROMBIN TIME 29.7 SECONDS (11.8-14.0)
[2019-01-18 07:05] LABS: CALCIUM LEVEL 9.2 MG/DL (8.8-10.2); CREATININE FOR GFR 1.37 MG/DL (0.55-1.30); GLOMERULAR FILTRATION RATE 40.9 (>45); POTASSIUM SERUM 4.2 MEQ/L (3.5-5.1)
[2019-01-18 08:00] VITALS: BP 118/70
[2019-01-18] MEDS: FOLIC ACID 1 MG TAB PO SCH (08:59)
[2019-01-18] MEDS: SPIRONOLACTONE 25 MG TAB PO SCH (08:59)
[2019-01-18 09:00] VITALS: BP 118/70
[2019-01-18] MEDS: CARVedilol 3.125 MG TAB PO SCH (09:00)
[2019-01-18] MEDS: FUROSEMIDE 40 MG TAB PO SCH (09:00)
[2019-01-18] MEDS: POTASSIUM CHLORIDE 10 MEQ SR TABLET PO SCH (09:01)
[2019-01-18 13:36] LABS: CALCIUM LEVEL 9.1 MG/DL (8.8-10.2); CREATININE FOR GFR 1.28 MG/DL (0.55-1.30); GLOMERULAR FILTRATION RATE 44.3 (>45)
[2019-01-18 14:00] VITALS: BP 129/66
[2019-01-18] MEDS ORDERED: FLUBLOK(EGG FREE)(QUAD)INFLUENZA VACC 0.5ML SYRINGE (90682)18YRS&OLDER IM ONE (15:00)
--- NOTE | 2019-01-18 15:44 | DS.PDOC ---
Discharge Summary General Date of Admission Jan 02, 2019 at 10:22 Date of Discharge 01/18/19 Discharge Summary PROCEDURES PERFORMED DURING STAY: PROCEDURE: Laparoscopic cholecystectomy ADMITTING DIAGNOSES: 1. Evaluation for Cholecystectomy 2. AVR/MVR/Afib 3. CAD 4. HTN 5. GERD DISCHARGE DIAGNOSES: 1. Evaluation for Cholecystectomy 2. AVR/MVR/Afib 3. CAD 4. HTN 5. GERD COMPLICATIONS/CHIEF COMPLAINT: Cholecystectomy Planned. HISTORY OF PRESENT ILLNESS: "Patient sent to ED by PCP for malik-op monitoring for planned cholecystectomy. No complaints at this time. Denies chest pain, shortness of breath, headaches, N/V/D." HOSPITAL COURSE: Patient underwent Laparoscopic cholecystectomy. Course of hospitalization complicated by bleeding, rectus sheath hematoma/R. subhepatic space hematoma/R. hemoperitoneum and anticoagulation had to be held. Anticoagulation subsequently restarted to goal of INR 2.5-3.5 while close monitoring for recurrent in bleed. Hb remained stable and INR increased progressively as expected without complications. Today INR noted to be therapeutic at 2.84 without evidence of ble eding. However, noted to have elevation in creatinine to 1.37 this AM. Patient reported that she didn't feel well yesterday afternoon so she slept most of the day and did not consume much fluids. However, she felt much better today and had been eating/drinking without any difficulty. She denies any complaints, repeat BMP showed improvement in kidney function. Cr down to 1.28. To discharge patient to f/u PMD within 1 week and for home health monitoring of INR. Advised to come to ER should recurrent in bleeding or abdominal pain occurs. DISCHARGE MEDICATIONS: Please see below. ALLERGIES: Please see below. PHYSICAL EXAMINATION ON DISCHARGE: VITAL SIGNS: Please see below. General: No acute distress, Alert Eyes: Normal sclera, EOMI, OSCAR HENT: Atraumatic, neck supple, moist mucous membranes Cardiovascular: Normal rate, normal rhythm. No murmurs appreciated. Pulmonary: Clear to auscultation b/l, no wheezing GI: Soft, nontender, nondistended Skin: Warm and dry Neuro: CN grossly intact. No focal deficits. Strengths equal b/l. Psych: oriented x 3 LABORATORY DATA: Please see below. IMAGING: Abdomen/pelvis CT- IMPRESSION: 1. Large 19 x 8.3 x 3.5 cm right rectus sheath hematoma. 2. Postoperative changes in the right anterolateral and superior abdominal wall. 3. 5.6 cm hematoma in the right subhepatic space. 4. Small right hemoperitoneum. 5. Fullness in the pancreatic head question postoperative changes, new from October 20, 2018.6. 9 mm pulmonary nodule in the right base. ACTIVITY: [As tolerated]. DIET: Regular DISCHARGE PLAN: f/u PMD within 1 week continue to monitor INR monitor for any bleeding/abdominal pain, come to ER if occurs monitor kidney function DISPOSITION: Home. DISCHARGE INSTRUCTIONS: f/u PMD within 1 week continue to monitor INR monitor for any bleeding/abdominal pain, come to ER if occurs monitor kidney function ITEMS TO FOLLOWUP ON ON OUTPATIENT: None DISCHARGE CONDITION: [Stable]. TIME SPENT ON DISCHARGE: 35 minutes. Vital Signs/I&Os Vital Signs Date Time Temp Pulse Resp B/P (MAP) Pulse Ox O2 Delivery O2 Flow Rate FiO2 01/18/19 14:00 97.3 70 20 129/66 (87) 98 I&O- Last 24 Hours up to 6 AM 01/18/19 06:00 Intake Total 750 ml Output Total 400 ml Balance 350 ml Laboratory Data Labs 24H Laboratory Tests 2 01/18/19 05:49: Nucleated Red Blood Cells % (auto) 0.0, Prothrombin Time 29.7H, Prothromb Time International Ratio 2.84, Anion Gap 10, Glomerular Filtration Rate 40.9L, Blood Urea Nitrogen 17#, Creatinine 1.37#H, Sodium Level 140, Potassium Level 4.2, Chloride Level 105, Carbon Dioxide Level 25, Calcium Level 9.2 01/18/19 12:20: Anion Gap 10, Glomerular Filtration Rate 44.3L, Blood Urea Nitrogen 21H, Creatinine 1.28, Sodium Level 132#L, Potassium Level 4.0, Chloride Level 96L, Carbon Dioxide Level 26, Calcium Level 9.1 CBC/BMP Laboratory Tests 01/18/19 05:49 Red Blood Count 3.49 L, Mean Corpuscular Volume 90.3, Mean Corpuscular Hemoglobin 29.2, Mean Corpuscular Hemoglobin Concent 32.4, Red Cell Distribution Width 15.5 H, Calcium Level 9.2 01/18/19 12:20 Calcium Level 9.1 Discharge Medications Scheduled Aspirin (Aspirin EC) 81 Mg Tablet.dr, 81 MG PO DAILY, (Reported) Atorvastatin Calcium (Atorvastatin Calcium) 20 Mg Tab, 20 MG PO QPM, (Reported) Carvedilol (Carvedilol) 3.125 Mg Tab, 3.125 MG PO BID, (Reported) Folic Acid (Folic Acid) 1 Mg Tab, 1 MG PO DAILY, (Reported) Furosemide (Furosemide) 40 Mg Tab, 40 MG PO DAILY, (Reported) Lansoprazole (Lansoprazole) 30 Mg Capsule.dr, 30 MG PO DAILY, (Reported) Lisinopril (Lisinopril) 5 Mg Tablet, 5 MG PO QPM, (Reported) Montelukast Sodium (Montelukast Sodium) 10 Mg Tablet, 10 MG PO QPM, (Reported) Multivitamin (Tab-A-Ovidio) 1 Each Tablet, 1 TAB PO DAILY, (Reported) Potassium Chloride (Potassium Chloride) 10 Meq Tablet.er, 10 MEQ PO DAILY, (Reported) Spironolactone (Spironolactone) 25 Mg Tablet, 25 MG PO DAILY, (Reported) Warfarin Sodium (Warfarin Sodium) 4 Mg Tablet, 2 MG PO 5XW, (Reported) MON/TUE/THURS/FRI/SUN AT 1700 Warfarin Sodium (Warfarin Sodium) 4 Mg Tablet, 4 MG PO 2XW, (Reported) WED/SAT AT 1700 Scheduled PRN Acetaminophen (Acetaminophen) 500 Mg Tablet, 1,000 MG PO Q6H PRN for PAIN, (Reported) Allergies Coded Allergies: simvastatin (Verified Allergy, Mild, RASH, 01/02/19) LAURIE CRUZ MD Jan 18, 2019 15:44
[2019-01-18] MEDS ORDERED: ONDANSETRON 4 MG ORAL DISINTEGRATING TAB (Q0162 PER 1MG) SL PRN (18:00)
== END 2019-01-18 15:36 | disposition home health service (06) | DRG 418 ==
LOC: M ED 08:11 → M ED INP 10:22 → M PCU 11:57 → M MSPAV 01-03 14:11
PROVIDERS: ADMIT Internal Medicine; ATTEND Student in an Organized Health Care Education/Training Program
PROC: 0FT44ZZ Resection of Gallbladder, Percutaneous Endoscopic Approach (ICD-10-PCS; principal; 2019-01-05 07:30)
PROC: 30233N1 Transfusion of Nonautologous Red Blood Cells into Peripheral Vein, Percutaneous Approach (ICD-10-PCS; 2019-01-10)
DX: K80.20 Calculus of gallbladder without cholecystitis without obstruction (principal); M96.841 Postprocedural hematoma of a musculoskeletal structure following other procedure; K91.870 Postprocedural hematoma of a digestive system organ or structure following a digestive system procedure; D62 Acute posthemorrhagic anemia; N17.9 Acute kidney failure, unspecified; D68.32 Hemorrhagic disorder due to extrinsic circulating anticoagulants; I48.91 Unspecified atrial fibrillation; Z95.2 Presence of prosthetic heart valve; Z95.810 Presence of automatic (implantable) cardiac defibrillator; Z79.01 Long term (current) use of anticoagulants; I08.0 Rheumatic disorders of both mitral and aortic valves; I25.10 Atherosclerotic heart disease of native coronary artery without angina pectoris; Z95.1 Presence of aortocoronary bypass graft; I10 Essential (primary) hypertension; Z87.891 Personal history of nicotine dependence; K21.9 Gastro-esophageal reflux disease without esophagitis; Z79.82 Long term (current) use of aspirin; Z79.899 Other long term (current) drug therapy; Z88.8 Allergy status to other drugs, medicaments and biological substances; I95.81 Postprocedural hypotension; E78.00 Pure hypercholesterolemia, unspecified

== ENCOUNTER → 2019-07-26 | Outpatient (REF) | payer MEDICARE, MEDICAID ==
[~2019-07-26] MED LIST changes: +ACET-683 PO; +MONT10TA4 PO
[2019-07-26 13:38] LABS: BASO # 0.1 10^3/uL (0.0-0.2); BASO % 1.3 % (0.0-1.0); EOS # 0.2 10^3/uL (0.0-0.5); EOS % 3.7 % (0.0-3.0); HEMATOCRIT 38.4 % (36.0-47.0); LYMPH # 1.6 10^3/uL (1.5-5.0); LYMPH % 29.2 % (24.0-44.0); MEAN CORPUSCULAR HEMOGLOBIN 30.4 pg (27.0-33.0); MEAN CORPUSCULAR HGB CONC 33.9 g/dl (32.0-36.5); MEAN CORPUSCULAR VOLUME 89.7 fl (80.0-96.0); MONO # 0.5 10^3/uL (0.0-0.8); MONO % 8.6 % (0.0-5.0); NEUTROPHILS % 56.6 % (36.0-66.0); PLATELET COUNT, AUTOMATED 184 10^3/uL (150-450); RED BLOOD COUNT 4.28 10^6/uL (4.00-5.40); WHITE BLOOD COUNT 5.4 10^3/uL (4.0-10.0)
[2019-07-26 13:51] LABS: ALBUMIN 4.2 GM/DL (3.2-5.2); BILIRUBIN,TOTAL 0.8 MG/DL (0.2-1.0); CALCIUM LEVEL 9.4 MG/DL (8.8-10.2); CHOLESTEROL RISK RATIO 2.764 (<5); CREATININE FOR GFR 1.33 MG/DL (0.55-1.30); FREE T4 1.2 NG/DL (0.76-1.46); GLOMERULAR FILTRATION RATE 42.2 (>45); THYROID STIMULATING HORMONE 2.62 uIU/ML (0.358-3.740); TOTAL PROTEIN 7.5 GM/DL (6.4-8.2)
[2019-07-26 13:58] LABS: HEMOGLOBIN A1c 5.9 %
== END ==
LOC: M LAB REF 13:06
PROVIDERS: ATTEND Family Medicine
DX: R73.03 Prediabetes (principal); I48.91 Unspecified atrial fibrillation; E78.5 Hyperlipidemia, unspecified

== ENCOUNTER → 2023-11-14 | Outpatient (CLI) | payer MEDICARE, MEDICAID ==
[~2023-11-14] MED LIST changes: -LISI-542 PO; +LISI5TAB11 PO; -MONT10TA4 PO; +MONT10TA97 PO; -POTA10TA14 PO; +POTA1TAB24 PO; -TAB-TAB; +TAB-TAB2
== END ==
LOC: M PLAIMG 12:24
PROVIDERS: ATTEND Physician Assistant
DX: I08.3 Combined rheumatic disorders of mitral, aortic and tricuspid valves (principal); Z95.2 Presence of prosthetic heart valve; I27.20 Pulmonary hypertension, unspecified